=== PATIENT | male | born 1960 | race Caucasian/White ===

== ENCOUNTER 2019-07-27 11:53 | Outpatient (CLI) | payer OTHER, SELFPAY ==
--- NOTE | 2019-07-27 12:37 | ECG_ITS ---
Measurements Intervals [place] Rate: 67 P: 33 AL: 187 QRS: -12 QRSD: 97 T: 7 QT: 344 QTc: 364 Interpretive Statements SINUS RHYTHM BORDERLINE R WAVE PROGRESSION, ANTERIOR LEADS BORDERLINE T WAVE ABNORMALITY- INFERIOR LEADS BASELINE ARTIFACT- I, III, AVL BORDERLINE ECG Electronically Signed On 07-27-2019 16:22:08 ANIMAL STICKER by Matteo Palm D.O.
[2019-07-27 13:01] LABS: Basophils Absolute Auto 0.1 K/mm3 (0.0-0.1); Basophils Percent Auto 0.9 % (0.2-1.2); Eosinophils Absolute Auto 0.1 K/mm3 (0-0.3); Eosinophils Percent Auto 0.9 % (0-4.4); Hematocrit 41.4 % (42.0-52.0); Hemoglobin 14.1 g/dL (14.0-18.0); Immature Granulocyte Absolute 0.02 K/mm3 (0.00-0.031); Immature Granulocyte Percent A 0.3 % (0-0.5); Lymphocytes Absolute Auto 1.72 K/mm3 (0.9-3.2); Lymphocytes Percent Auto 26.2 % (18.3-44.2); Mean Corpuscular HGB Conc 34.1 g/dl (32-36); Mean Corpuscular Hemoglobin 32.1 pg (26-34); Mean Corpuscular Volume 94.3 fl (80-100); Mean Platelet Volume 10.1 fl (7.4-10.4); Monocytes Absolute Auto 0.5 K/mm3 (0.1-0.6); Monocytes Percent Auto 8.1 % (2.6-8.5); Neutrophils Absolute Auto 4.2 K/mm3 (1.3-6.7); Neutrophils Percent Auto 63.6 % (45.5-73.1); Platelet Count Result 329 k/mm3 (150-375); Red Blood Count 4.39 M/mm3 (4.6-6.20); Red Cell Distribution Width 11.8 % (11.5-14.5); White Blood Count 6.6 K/mm3 (4.5-10.0)
[2019-07-27 13:10] LABS: INR 0.9
[2019-07-27 13:11] LABS: Partial Thromboplastin Time 25.7 SECONDS (22.3-36.8)
[2019-07-27 13:13] LABS: Alanine Aminotransferase 18 U/L (4-50); Alkaline Phosphatase 43 U/L (38-126); Aspartate Amino Transferase 26 U/L (17-59); Bilirubin,Total 0.6 mg/dL (0.2-1.3); Blood Urea Nitrogen 32 mg/dL (9-20); Calcium 10.6 mg/dL (8.4-10.2); Carbon Dioxide 25 mmol/L (22-30); Chloride 100 mmol/L (98-107); Estimated Glomerular Filt Rate 36; Glucose 116 mg/dL (75-110); Potassium 4.5 mmol/L (3.4-5.0); Sodium 136 mmol/L (137-145)
== END 2019-07-27 11:54 | disposition home or self-care (01) ==
LOC: ANHSURGERY 11:56
PROVIDERS: PCP Family Medicine; Visit Provider Urology
DX: Z01.818 Encounter for other preprocedural examination (principal); I10 Essential (primary) hypertension; E11.9 Type 2 diabetes mellitus without complications
CPT/HCPCS: 36415; 80053; 85025; 85610; 85730; 86850; 86900; 86901; 87086; 87088; 93005

== ENCOUNTER → 2019-08-03 15:57 | Outpatient (CLI) | payer OTHER, SELFPAY ==
--- NOTE | ~2019-08-03 | US_ITS ---
EXAMINATION: US retroperitoneal comp EXAM DATE: 08/03/2019 16:19 INDICATION: Renal insufficiency, stage III kidney disease. Elevated creatinine. TECHNIQUE: Multiple grayscale and Doppler images of the kidneys were obtained (by a technologist who performed the scan) and subsequently reviewed. There is no prior study for comparison. FINDINGS: Right kidney: There is normal contour and echogenicity. It measures 10.8 x 5.1 x 5.7 centimeters. T here are no focal renal lesions identified. There is no hydronephrosis. Left kidney: There is normal contour and echogenicity. It measures 11.7 x 5.7 x 5.0 centimeters. Th ere are no focal renal lesions identified. There is no hydronephrosis. Bladder unremarkable. Prevoid bladder volume 143 mL, postvoid bladder volume 58 mL. Prostatomegaly n oted. IMPRESSION: 1. Prostatomegaly with some postvoid residual. Reviewed, dictated and finalized at location A. HNUT MAKER
== END ==
PROVIDERS: PCP Family Medicine; Visit Provider Urology
DX: N28.9 Disorder of kidney and ureter, unspecified (principal); N40.0 Benign prostatic hyperplasia without lower urinary tract symptoms
CPT/HCPCS: 76770

== ENCOUNTER 2019-08-07 00:44 | Day surgery (SDC) | payer OTHER, SELFPAY ==
[2019-07-27 12:38] VITALS: BP 127/69; PULSE 74; RESP 18; TEMP 36.7; O2SAT 98; BMI 26.7
--- NOTE | 2019-08-06 18:15 | WPDANESEPP ---
Anes - Eval Pre Procedure Procedure: Operation Date: 08/07/19 07:30 Proposed Procedures p Robotic Assisted Nerve Sparing Prostatectomy, Possible Pelvic Lymph Node Dissection - Vinicio Vizcaino MD Date/Time: 08/06/19 18:15 Pre Op Diagnosis: Prostate CA Patient Data Age: 59 Gender: M Height: 1.8 m Weight: 87 kg Last Vital Signs Temp 36.7 C 07/27/19 12:38 Pulse 74 07/27/19 12:38 Resp 18 07/27/19 12:38 BP 127/69 07/27/19 12:38 Pulse Ox 98 07/27/19 12:38 Allergies Allergy/AdvReac Type Severity Reaction Status Date / Time No Known Allergies Allergy Unknown Unverified 07/27/19 12:35 tadalafil AdvReac Mild Heartburn Verified 07/27/19 12:35 Home Medications Medication Instructions Recorded Confirmed Type atorvastatin 10 mg tablet 10 mg PO DAILY #90 tablet 05/09/19 07/27/19 Rx fenofibrate 160 mg tablet 160 mg PO DAILY #90 tablet 06/18/19 07/27/19 Rx cholecalciferol (vitamin D3) 2,000 unit PO DAILY 07/27/19 07/27/19 History [Vitamin D3] finasteride 5 mg PO DAILY 07/27/19 07/27/19 History lisinopril-hydrochlorothiazide 1 tablet PO DAILY 07/27/19 07/27/19 History metformin 500 mg PO DAILY 07/27/19 07/27/19 History ECG: Patient: Naren Box [facility]#: [id number] : 8Acct:[id number] Age/Sex: 59 / MADM Date: 07/27/19 Loc: ANHSURGERY Attending Dr: Vinicio Vizcaino MD Ordering Physician: Ruben Pabon DO Date of Service: 07/27/19 Procedure(s): CA 12 lead EKG Accession Number(s): [id number] cc: ~ Measurements Intervals [place] Rate: 67 P: 33 [place]: 187 QRS: -12 QRSD: 97 T: 7 QT: 344 QTc: 364 Interpretive Statements SINUS RHYTHM BORDERLINE R WAVE PROGRESSION, ANTERIOR LEADS BORDERLINE T WAVE ABNORMALITY- INFERIOR LEADS BASELINE ARTIFACT- I, III, AVL BORDERLINE ECG Electronically Signed On 07-27-2019 16:22:08 EDUCATION FACULTY MEMBER by Matteo Palm D.O. Patient hx anesthesia problems: none Family hx anesthesia problems: none PMFSH Past Medical History Medical History (Updated 08/06/19 @ 09:51 by Ruben Pabon DO) CKD (chronic kidney disease) stage III Diabetes type 2, controlled Hyperlipidemia Hypertension Osteoarthritis Prostate CA Family History Family History (Updated 01/20/17 @ 15:42 by DOCTOR UNKNOWN) Mother Family history of lung cancer Other Diabetes mellitus Hypertension Social History Social History Smoking status: Never smoker Second hand tobacco smoke exposure: No Alcohol intake: never Gender identity (if verbalized by the patient): Male Exam Day of Procedure 08/06/19 18:15
[2019-08-07] VITALS (11 sets, daily range): BP systolic 109–131; BP diastolic 55–84; PULSE 73–108; RESP 12–18; TEMP 36.4–37.7; O2SAT 91–100; BMI 23.6
--- NOTE | 2019-08-07 06:34 | WPDANESEFPP ---
Anes - Eval Final PreProcedure Day of Procedure 08/07/19 06:34 Patient weight: overweight Heart: regular rate and rhythm Lungs: clear to auscultation and normal air movement Airway: Mallampati scale class II Neurological: alert and oriented Last oral intake: >/= 8 hours ASA classification: III Emergent: no Anesthetic plan: proceed Anesthesia type and monitoring: general ETT and standard monitoring Informed Consent: The patient's anesthetic plan and its attendant risks and benefits were discussed with the patient/family/POA. Questions were solicited and answers provided to the satisfaction of the patient/family/POA.
[2019-08-07 06:37] LABS: Glucose Point of Care 105 (65-105)
--- NOTE | 2019-08-07 06:48 | WPDHPUPDATE1 ---
History and Physical Update Update Date/Time: 08/07/19 06:48 History and Physical has been reviewed, including an updated exam of the patient. There are NO changes in the patient's condition. Risks, benefits, and alternatives have been discussed and questions answered. Patient agrees to proceed with procedure.
--- NOTE | 2019-08-07 07:09 | WPDHPUPDATE1 ---
History and Physical Update Update Date/Time: 08/07/19 07:09 History and Physical has been reviewed, including an updated exam of the patient. There are NO changes in the patient's condition. Risks, benefits, and alternatives have been discussed and questions answered. Patient agrees to proceed with procedure. Possible PLND in addition.
[2019-08-07] MEDS: LACTATED RINGERS 1,000 ML 30 ML IV CONT ×2 (07:10→11:46)
[2019-08-07] MEDS: ceFAZolin 2 GM/D5W 50 ML 2 GM/50 ML BAG IVPB (07:28)
--- NOTE | 2019-08-07 11:33 | P.OP_ITS ---
Procedure Note - Detailed Date of procedure: 08/07/19 Pre-op diagnosis: Prostate CA Adenocarcinoma of the prostate Post-op diagnosis: same Procedure performed: Robotic assisted nerve-sparing prostatectomy with right pelvic lymph node dissection Description of procedure: Patient was taken the operative suite and correctly identified. Once general anesthesia was obtained he was placed in the low lying dorsal lithotomy position prepped and draped in usual sterile fashion. A supraumbilical midline incision was made and carried down to the rectus fascia. Veress needle was inserted in the abdomen was insufflated to 15 mm Hg pressure. Camera port was placed under direct vision. We then placed our working ports in the appropriate locations. Patient has significant amount of adhesions of the sigmoid colon which were taken down. Posterior approach was then performed. Seminal vesicles were dissected out entirety and the vas is were transected. Plane between the prostate and rectum was developed. Bladder was then taken down. The space of Retzius was developed. Dorsal venous complex was isolated and ligated with a 0 Vicryl in secured to the pubic bone. Puboprostatic had been taken down. Anterior bladder neck was then incised and opened. Patient is noted to have a median lobe which was protuberant. This was dissected out. The bladder neck was slightly enlarged from this and we reconstructed the right lateral aspect with interrupted 2 0 Vicryls. Posterior bladder neck was then taken down. Then on phase was incised. The previously dissected seminal vesicles and vas were visualized and brought in the operative field. Bilateral nerve-sparing was performed standard fashion. Pedicles had been clipped. Dorsal venous complex was then transected. The urethra was also transected. There was a nice urethral stump present. We then did a right pelvic lymph node dissection with the boundaries being the external iliac vein obturator nerve, obie's ligament and bifurcation proximally. The obturator nerve was visualized at all times. Prostate and lymph node packet were then placed in an Endo-Catch bag. We placed Surgicel in the right obturator fossa as well as over the nerves. We then approximated [place]. The bladder neck was then approximated to the urethral stump using V lock suture in a running fashion. There was good [id number] approximation. Eighteen Sammarinese Oneill was inserted inflated with 10 cc of sterile water. The bladder was then filled with 120 cc of sterile water. There was good approximation no evidence of extravasation at this time. All lap count needle count sponge counts were correct. The robot was undocked. The Endo-Catch bag was then brought out through the midline incision. Rectus fascia was closed using 0 Vicryl. We had placed a Morales drain through the 3rd port site. This was secured in place. Subcuticular stitches were then placed in skin. We anesthetized 1% lidocaine. Patient is taken recovery room stable condition. Anesthesia: GETA Surgeon: Vinicio Vizcaino MD Estimated blood loss (mL): 150 Drains: Yes Packing: No Pathology: yes Complications: No immediate complications Condition: stable Disposition: PACU
--- NOTE | 2019-08-07 11:51 | SUR.OPER ---
EBL 150ML, END U/A 150ML PINK TINGED/SECURE TO RIGHT LEG.
[2019-08-07 11:53] LABS: Glucose Point of Care 154 (65-105)
--- NOTE | 2019-08-07 12:50 | SUR.PHASEI ---
1230:ATTEMPTED TO UPDATE SISTER, VIDA IN WAITING ROOM; SHE IS NOT PRESENT IN WAITING RM.
[2019-08-07] MEDS: LACTATED RINGERS 1,000 ML 125 ML IV CONT (13:38)
--- NOTE | 2019-08-07 13:44 | ADMGEN ---
This patient, Naren Box, was admitted to [facility] Surg Room 310-01. Patient/family oriented to hospital policies and general routines including ID bracelet, bed and alarms, visiting hours, pain management, procedures, bathroom and other care routines, personal items, smoking policy, room service/diet, and visiting hours. Valuables list has been completed. Information on how to activate the Rapid Response Team has been discussed. Patient/Family are encouraged to report perceived risks to care and to ask questions if they do not understand what they are told or what they should do.
[2019-08-07] MEDS: FENOFIBRATE 160 MG TABLET PO (18:32)
[2019-08-07] MEDS: ATORVASTATIN 10 MG TABLET PO (21:05)
[2019-08-08] MEDS: LACTATED RINGERS 1,000 ML 125 ML IV CONT ×2 (00:54→08:51)
[2019-08-08 02:00] VITALS: BP 109/62; PULSE 71; RESP 18; TEMP 37; O2SAT 100
[2019-08-08 05:54] VITALS: BP 98/55; PULSE 64; RESP 18; TEMP 36.3; O2SAT 99
[2019-08-08 06:32] LABS: Hematocrit 31.2 % (42.0-52.0); Hemoglobin 10.6 g/dL (14.0-18.0)
[2019-08-08 06:40] LABS: Blood Urea Nitrogen 31 mg/dL (9-20); Calcium 8.7 mg/dL (8.4-10.2); Carbon Dioxide 29 mmol/L (22-30); Chloride 99 mmol/L (98-107); Estimated CRCL calculation 42 ml/min; Estimated Glomerular Filt Rate 39; Glucose 147 mg/dL (75-110); Potassium 3.8 mmol/L (3.4-5.0); Sodium 135 mmol/L (137-145)
--- NOTE | 2019-08-08 07:16 | WPDUROPN2 ---
Progress Note: A&P Assessment and Plan (1) Adenocarcinoma of prostate: Code(s): C61 - Malignant neoplasm of prostate Status: Acute Assessment and Plan: Postop day 1. Robotic assisted nerve-sparing prostatectomy with right pelvic lymph node dissection. Patient doing well. Increase activity. Will monitor BLAINE output this morning. If remains minimal will remove BLAINE prior to discharge. Possible discharge later today with Oneill catheter and plan for catheter cystogram as outpatient next week Subjective Subjective Date/Time Seen: 08/08/19 07:16 Post Op day: 1 (Robotic assisted nerve-sparing radical prostatectomy with right pelvic lymph node dissection) Interval history: Naren is doing well today. No significant pain. His urine remains clear. Blood pressure slightly decreased will monitor at this point in time. Otherwise hemodynamically stable Review of Systems Review of Systems: All systems reviewed & are unremarkable except as noted in HPI and below Exam Const: General: comfortable HENMT: General nose exam: Normal nares present Eyes: General: appearance normal, both eyes and all related structures Resp: Effort & Inspection: normal respiratory effort Cardio: Rate: regular rate Rhythm: regular rhythm GI: Inspection: non-distended : Male General Exam: Yes normal external exam Urinary Catheter: Urinary Catheter: patent and draining and urine clear Skin: General skin exam: normal color Objective Data Vital Signs Vital Signs: Vital Signs - 24 hr 08/07/19 11:46 08/07/19 12:00 08/07/19 12:14 Temperature 36.4 C L Pulse Rate 82 93 96 Respiratory Rate 14 16 15 Blood Pressure 115/55 L 109/71 113/75 Pulse Oximetry 97 98 98 08/07/19 12:30 08/07/19 12:45 08/07/19 13:00 Temperature 36.4 C L Pulse Rate 88 90 89 Respiratory Rate 15 12 13 Blood Pressure 112/72 117/77 111/74 Pulse Oximetry 92 91 93 08/07/19 13:15 08/07/19 13:30 08/07/19 14:00 Temperature 36.8 C Pulse Rate 91 90 76 Respiratory Rate 16 16 16 Blood Pressure 129/68 126/71 128/75 Pulse Oximetry 91 94 98 08/07/19 22:00 08/08/19 02:00 08/08/19 05:54 Temperature 37.7 C H 37.0 C 36.3 C L Pulse Rate 108 H 71 64 Respiratory Rate 18 18 18 Blood Pressure 118/70 109/62 98/55 L Pulse Oximetry 93 100 99 Intake/Output Intake/Output: Intake & Output 08/05/19 08/06/19 08/07/19 08/08/19 23:59 23:59 23:59 23:59 Intake Total 1330 1250 Output Total 530 2220 Balance 800 -970 Meds/Results Medications: Active Medications Generic Name Dose Route Start Last Admin Trade Name Freq PRN Reason Stop Dose Admin Hydrocodone Bitart/Acetaminophen 1 tab 08/07/19 13:08 08/07/19 18:32 [place] 5-325 Mg PO 1 tab Q6H PRN Administration Pain Rated 4-6 Hydrocodone Bitart/Acetaminophen 2 tab 08/07/19 13:08 08/08/19 00:54 [place] 5-325 Mg PO 2 tab Q6H PRN Administration Pain Rated 7-10 Atorvastatin Calcium 10 mg 08/07/19 21:00 08/07/19 21:05 Lipitor PO 10 mg HS PATRICIA Administration Fenofibrate 160 mg 08/07/19 09:00 08/07/19 18:32 Fenofibrate PO 160 mg DAILY PATRICIA Administration Hydrochlorothiazide 12.5 mg 08/08/19 09:00 Hydrochlorothiazide PO QAM [facility] Hyoscyamine 0.125 mg 08/07/19 13:08 Levsin Tablet SUBLINGUAL Q4H PRN Bladder Spasm Lactated Ringer's 1,000 mls @ 125 mls/hr 08/07/19 13:08 08/08/19 00:54 Lr - Lactated Ringers Iv IV CONT 125 mls/hr .Q8H PATRICIA Administration Ketorolac Tromethamine 30 mg 08/07/19 13:08 Toradol Inj IV PUSH 08/08/19 13:09 Q6H PRN Pain Rated 4-6 Levofloxacin 500 mg 08/08/19 09:00 Levaquin Tab PO DAILY [facility] Lisinopril 10 mg 08/08/19 09:00 Prinivil PO QAM [facility] Metformin HCl 500 mg 08/08/19 08:00 Glucophage PO DAILY@0800 [facility] Morphine Sulfate 1 mg 08/07/19 13:08 Morphine Sulfate Inj IV PUSH Q2H PRN Pain Rated 7-10 Naloxone HCl 0.1 mg
[2019-08-08 08:51] VITALS: BP 106/65
[2019-08-08] MEDS: hydroCHLOROthiazide 12.5 MG CAPSULE PO (08:52)
[2019-08-08] MEDS: FENOFIBRATE 160 MG TABLET PO (08:52)
[2019-08-08] MEDS: metFORMIN HCL 500 MG TABLET PO (08:52)
[2019-08-08] MEDS: lisinopriL 10 MG TABLET PO (08:52)
[2019-08-08 10:00] VITALS: BP 122/63; PULSE 80; RESP 16; O2SAT 100
== END 2019-08-08 17:15 | disposition home or self-care (01) ==
LOC: ANHSURGERY 05:50 → ANH3MEDSUR 15:29
PROVIDERS: PCP Family Medicine; Visit Provider Urology
PROC: 0VT04ZZ Resection of Prostate, Percutaneous Endoscopic Approach (ICD-10-PCS; CPT 55867; principal; 2019-08-07 07:30)
DX: C61 Malignant neoplasm of prostate (principal); I12.9 Hypertensive chronic kidney disease with stage 1 through stage 4 chronic kidney disease, or unspecified chronic kidney disease; E11.22 Type 2 diabetes mellitus with diabetic chronic kidney disease; N18.3 Chronic kidney disease, stage 3 (moderate); E78.5 Hyperlipidemia, unspecified; M19.90 Unspecified osteoarthritis, unspecified site; Z79.84 Long term (current) use of oral hypoglycemic drugs
CPT/HCPCS: 55866; 38571; S2900; 36415; 80048; 85014; 85018; 88305; 88307; 88309; A9270; J0131; J0690; J1100; J2250; J2370; J2405; J2704; J3010; J7030; J7120; Q9968

== ENCOUNTER 2019-08-16 09:51 | Outpatient (CLI) | payer OTHER, SELFPAY ==
--- NOTE | ~2019-08-16 | XR_ITS ---
EXAMINATION: XR cystogram EXAM DATE: 08/16/2019 10:46 INDICATION: Prostate cancer. TECHNIQUE: Fluoroscopic guidance during cystogram through Oneill catheter in place on patient arrival . Patient tolerated approximately 200 mL of contrast. Dose reduction digital pulsed fluoroscopy was u sed at 4 frames per second with DAP 11 Gycm2. No prior study. FINDINGS: Oneill catheter in position. Mild bladder wall trabeculation. No focal masses, diverticula, extravasation or ureteral reflux demonstrated. IMPRESSION: Unremarkable postoperative cystogram. Reviewed, dictated and finalized at location A. OCHEMICAL TECHNICIAN
== END 2019-08-16 09:52 | disposition home or self-care (01) ==
PROVIDERS: PCP Family Medicine; Visit Provider Urology
DX: C61 Malignant neoplasm of prostate (principal)
CPT/HCPCS: 51600; 74430; Q9967

== ENCOUNTER 2021-02-11 00:14 | Day surgery (SDC) | payer OTHER, SELFPAY ==
[2021-02-03 13:40] VITALS: BMI 25.1
--- NOTE | 2021-02-11 08:23 | PM.HPGS ---
History of Present Illness History of Present Illness Consent: Risks, benefits, and alternatives have been discussed and questions answered. Patient agrees to proceed with procedure. Chief complaint: hx of colon polyps Narrative: Naren Box is a 61 year old male here for colon cancer screening. He has a history of polyps Review of Systems Review of Systems: All systems reviewed & are unremarkable except as noted in HPI and below PMFSH Past Medical History Medical History Adenocarcinoma of prostate CKD (chronic kidney disease) stage 3, GFR 30-59 ml/min Dyslipidemia Essential (primary) hypertension GERD without esophagitis Idiopathic chronic gout, unspecified site, without tophus (tophi) Osteoarthritis Prostate CA Subclinical hypothyroidism Type 2 diabetes mellitus without complication, without long-term current use of insulin Surgical History Surgical History History of prostatectomy (~07/2019) 08/16 Family History Family History Mother Family history of lung cancer Other Diabetes mellitus Hypertension Social History Social History Smoking status: Never smoker Second hand tobacco smoke exposure: No Alcohol intake: former Substance use: never Substance use type: does not use Living arrangements: alone Gender identity (if verbalized by the patient): Male Sexual Orientation (if Verbalized by the Patient): Straight or Heterosexual Spiritual care concerns: No Meds Home Medications and Allergies Home Medications Medication Instructions Recorded Confirmed Type cholecalciferol (vitamin D3) 2,000 unit PO DAILY 07/27/19 02/03/21 History [Vitamin D3] blood sugar diagnostic See Rx Instructions .ROUTE 01/02/20 02/03/21 Rx .COMPLEX #100 each lancets 33 gauge See Rx Instructions .ROUTE 01/02/20 02/03/21 Rx .COMPLEX #100 each atorvastatin 10 mg tablet 10 mg PO QHS tablet 01/08/21 02/03/21 History fenofibrate 160 mg tablet 160 mg PO DAILY tablet 01/08/21 02/03/21 History lisinopril 10 1 tablet PO DAILY tablet 01/08/21 02/03/21 History mg-hydrochlorothiazide 12.5 mg tablet metformin 1,000 mg tablet 1,000 mg PO BID #180 tablet 01/13/21 02/03/21 Rx Allergies Allergy/AdvReac Type Severity Reaction Status Date / Time No Known Allergies Allergy Unknown Verified 02/11/21 08:40 Exam Resp: Auscultation: clear to auscultation bilaterally Cardio: Rate: regular rate Rhythm: regular rhythm GI: GI Palp: Yes Soft to palpation and No Tenderness to palpation present (GI) Assessment and Plan Assessment and plan (1) Colon cancer screening: Code(s): Z12.11 - Encounter for screening for malignant neoplasm of colon Status: Acute Assessment and Plan: Colonoscopy with possible biopsy or polypectomy or cautery or injection of substances.
[2021-02-11 08:42] VITALS: BP 119/75; PULSE 69; RESP 14; TEMP 36.2; O2SAT 100; BMI 24.7
[2021-02-11] MEDS: LACTATED RINGERS 1,000 ML 150 ML IV CONT (08:45)
--- NOTE | 2021-02-11 08:47 | WPDANESEPPF ---
Anes - Initial Pre Proc Eval Procedure: Operation Date: 02/11/21 09:30 Proposed Procedures p Screening Colonoscopy - Sander Mayes MD Date/Time: 02/11/21 08:47 Surgeon: Sander Mayes MD Pre Op Diagnosis: hx of colon polyps Patient Data Age: 61 Gender: M Height: 1.83 m Weight: 83 kg Last Vital Signs Temp 36.2 C L 02/11/21 08:42 Pulse 69 02/11/21 08:42 Resp 14 02/11/21 08:42 BP 119/75 02/11/21 08:42 Pulse Ox 100 02/11/21 08:42 Allergies Allergy/AdvReac Type Severity Reaction Status Date / Time No Known Allergies Allergy Unknown Verified 02/11/21 08:40 Home Medications Medication Instructions Recorded Confirmed Type cholecalciferol (vitamin D3) 2,000 unit PO DAILY 07/27/19 02/03/21 History [Vitamin D3] blood sugar diagnostic See Rx Instructions .ROUTE 01/02/20 02/03/21 Rx .COMPLEX #100 each lancets 33 gauge See Rx Instructions .ROUTE 01/02/20 02/03/21 Rx .COMPLEX #100 each atorvastatin 10 mg tablet 10 mg PO QHS tablet 01/08/21 02/03/21 History fenofibrate 160 mg tablet 160 mg PO DAILY tablet 01/08/21 02/03/21 History lisinopril 10 1 tablet PO DAILY tablet 01/08/21 02/03/21 History mg-hydrochlorothiazide 12.5 mg tablet metformin 1,000 mg tablet 1,000 mg PO BID #180 tablet 01/13/21 02/03/21 Rx Patient hx anesthesia problems: none Family hx anesthesia problems: none PMFSH Past Medical History Medical History Adenocarcinoma of prostate CKD (chronic kidney disease) stage 3, GFR 30-59 ml/min Dyslipidemia Essential (primary) hypertension GERD without esophagitis Idiopathic chronic gout, unspecified site, without tophus (tophi) Osteoarthritis Prostate CA Subclinical hypothyroidism Type 2 diabetes mellitus without complication, without long-term current use of insulin Surgical History Surgical History History of prostatectomy (~07/2019) 08/16 Family History Family History Mother Family history of lung cancer Other Diabetes mellitus Hypertension Social History Social History Smoking status: Never smoker Second hand tobacco smoke exposure: No Alcohol intake: former Substance use: never Substance use type: does not use Living arrangements: alone Gender identity (if verbalized by the patient): Male Sexual Orientation (if Verbalized by the Patient): Straight or Heterosexual Spiritual care concerns: No Anes - Eval Final PreProcedure Day of Procedure 02/11/21 08:47 Patient weight: normal Heart: regular rate and rhythm Lungs: clear to auscultation Airway: Mallampati scale class II Neurological: alert and oriented Last oral intake: >/= 8 hours ASA classification: III Emergent: no Anesthetic plan: proceed Anesthesia type and monitoring: general GIVS and standard monitoring Informed Consent: The patient's anesthetic plan and its attendant risks and benefits were discussed with the patient/family/POA. Questions were solicited and answers provided to the satisfaction of the patient/family/POA.
[2021-02-11 09:00] LABS: Glucose Point of Care 76 mg/dl (65-105)
[2021-02-11 09:55] VITALS: BP 98/66; PULSE 74; RESP 18; O2SAT 96
[2021-02-11 10:05] VITALS: BP 106/68; PULSE 64; RESP 18; O2SAT 100
[2021-02-11 10:15] VITALS: BP 106/68; PULSE 66; RESP 14; O2SAT 100
== END 2021-02-11 10:23 | disposition home or self-care (01) ==
PROVIDERS: PCP Family Medicine; Visit Provider Internal Medicine Gastroenterology
PROC: 0DJD8ZZ Inspection of Lower Intestinal Tract, Via Natural or Artificial Opening Endoscopic (ICD-10-PCS; CPT 45378; principal; 2021-02-11 09:30)
DX: Z12.11 Encounter for screening for malignant neoplasm of colon (principal); K57.30 Diverticulosis of large intestine without perforation or abscess without bleeding; K64.8 Other hemorrhoids; Z86.010 Personal history of colon polyps; I12.9 Hypertensive chronic kidney disease with stage 1 through stage 4 chronic kidney disease, or unspecified chronic kidney disease; N18.30 Chronic kidney disease, stage 3 unspecified; E11.22 Type 2 diabetes mellitus with diabetic chronic kidney disease; K21.9 Gastro-esophageal reflux disease without esophagitis; M10.00 Idiopathic gout, unspecified site; E03.9 Hypothyroidism, unspecified; Z85.46 Personal history of malignant neoplasm of prostate; Z79.84 Long term (current) use of oral hypoglycemic drugs
CPT/HCPCS: 45378; 82948; J2704; J7120

== ENCOUNTER 2021-06-28 07:58 | Inpatient (IN) | payer OTHER, SELFPAY ==
[2021-06-28] VITALS (25 sets, daily range): BP systolic 101–146; BP diastolic 74–99; PULSE 90–112; RESP 14–20; TEMP 36.9; O2SAT 94–100; BMI 25.0; BMI 25.6
--- NOTE | ~2021-06-28 | CT_ITS ---
EXAMINATION: CTA chest PE protocol EXAM DATE: 06/28/2021 12:06 INDICATION: Dyspnea. TECHNIQUE: Spiral CTA of the chest (pulmonary arteries) was performed with 100 cc Omnipaque 350 intr avenous contrast injection. Images were acquired during the pulmonary arterial phase. Coronal maxi mum intensity projection 3D-reconstructions were created by the technologist on dedicated workstation . Axial, coronal and sagittal reformatted images were reviewed. The dose-length product (DLP) for t his examination was 717.25 mGy-cm. The exposure was tailored according to patient size (auto mA exp osure control), and iterative reconstruction (ASIR) was used as additional dose reduction technique. There is no prior study for comparison. FINDINGS: There is saddle pulmonary embolism, multiple right-sided, several left-sided emboli. There is evidence of right heart strain. Large clot burden. No pulmonary infarction or other airspace dise ase. No thoracic aortic dissection. There are no pleural or pericardial effusions. Tracheobronchia l tree is patent. There is no mediastinal, hilar or axillary lymphadenopathy. There is no pneumot horax. Heart normal in size. No evidence of coronary arterial calcification. There is small slidi ng gastroesophageal hiatal hernia. There is thoracic spondylosis without osteoblastic or osteolytic lesions identified. IMPRESSION: Multiple pulmonary emboli including saddle embolism. Large clot burden, right heart strai n. I discussed this with Satnam Wong DO at 06/28/2021 12:13 DATASTAGE ARCHITECT. Reviewed, dictated and finalized at location A. STAGE ARCHITECT IMPRESSION: Multiple pulmonary emboli including saddle embolism. Large clot bur den, right heart strain. I discussed this with Satnam Wong DO at 06/28/2021 12:13 DATASTAGE ARCHITECT.
--- NOTE | ~2021-06-28 | XR_ITS ---
EXAMINATION: XR chest 1V portable EXAM DATE: 06/28/2021 10:59 INDICATION: Shortness of breath. TECHNIQUE: Portable AP frontal chest x-ray was obtained. There is no prior study for comparison. FINDINGS: The lungs are clear. There are no pleural effusions. The cardiomediastinal silhouette is within normal limits. There is no pneumothorax suspected. The bones and soft tissues are unremarkab le. IMPRESSION: No acute cardiopulmonary findings. Reviewed, dictated and finalized at location A. HEALTH LPN
--- NOTE | ~2021-06-28 | US_ITS ---
EXAMINATION: US venous doppler [facility] DATE: 06/28/2021 15:06 INDICATION: Acute pulmonary emboli. TECHNIQUE: Grayscale ultrasound images without and with compression and Doppler ultrasound images of the bilateral lower extremity veins were obtained. COMPARISON: None. FINDINGS: The visualized portions of right common femoral vein, profunda (deep) femoral vein, femoral vein, pop liteal vein, peroneal veins, posterior tibial veins, and greater saphenous vein outflow are patent. The visualized portions of left common femoral vein, profunda femoral vein, femoral vein, popliteal v ein, peroneal veins, posterior tibial veins, and greater saphenous vein outflow are patent. IMPRESSION: 1. No deep venous thrombosis. Reviewed, dictated and finalized at location A. IGERATING OILER
--- NOTE | 2021-06-28 10:34 | ECG_ITS ---
Measurements Intervals [place] Rate: 95 P: 68 [place]: 183 QRS: -8 QRSD: 101 T: 26 QT: 341 QTc: 429 Interpretive Statements SINUS RHYTHM NONSPECIFIC T-WAVE ABNORMALITY- INFERIOR LEADS BORDERLINE ECG Electronically Signed On 06-28-2021 10:47:22 BOW MAKER by Matteo aPlm D.O.
--- NOTE | 2021-06-28 10:35 | ED.GENADULT ---
HPI - General Adult General Chief complaint: Weakness Stated complaint: BBlood Sugar Elevated Time Seen by Provider: 06/28/21 10:32 Source: RN notes reviewed History of Present Illness HPI narrative: Patient presents emergency department from home via EMS for weakness. Patient states that he has felt weak since yesterday he states that his blood sugars normally run 100-1 15 but over the past 2 days have been up around 2 50-300. States he is on Metformin for his blood sugar she states is also felt short of breath since yesterday he denies any fevers or chills rhinorrhea chest pain, cough abdominal pain nausea vomiting diarrhea or any other symptoms. States he has been taking his medications as prescribed. Related Data Home Medications Medication Instructions Recorded Confirmed cholecalciferol (vitamin D3) 2,000 unit PO DAILY 07/27/19 02/03/21 [Vitamin D3] fenofibrate 160 mg tablet 160 mg PO DAILY tablet 01/08/21 02/03/21 Allergies Allergy/AdvReac Type Severity Reaction Status Date / Time No Known Allergies Allergy Unknown Verified 06/28/21 10:36 Review of Systems Review of Systems: Gen.: Denies fevers or chills Eyes: Denies eye pain or visual change ENT: Denies congestion Respiratory: Shortness of breath denies cough CV: Denies chest pain or palpitations GI: Denies abdominal pain nausea, emesis or diarrhea Musculoskeletal: Denies back pain or muscle pain Neuro: Reports weakness Skin: Denies rash Except as documented, all other systems reviewed and negative PMFSH Past Medical History Medical History Adenocarcinoma of prostate CKD (chronic kidney disease) stage 3, GFR 30-59 ml/min Dyslipidemia Essential (primary) hypertension GERD without esophagitis Idiopathic chronic gout, unspecified site, without tophus (tophi) Osteoarthritis Prostate CA Subclinical hypothyroidism Type 2 diabetes mellitus without complication, without long-term current use of insulin Surgical History Surgical History History of prostatectomy (~07/2019) 08/16 Family History Family History Mother Family history of lung cancer Other Diabetes mellitus Hypertension Social History Social History (Reviewed 06/28/21 @ 10:36 by HERMAN Hargrove Smoking status: Never smoker Second hand tobacco smoke exposure: No Alcohol intake: former Substance use: never Substance use type: does not use Gender identity (if verbalized by the patient): Male Sexual Orientation (if Verbalized by the Patient): Straight or Heterosexual Spiritual care concerns: No Exam Narrative: APPEARANCE: No acute distress, nontoxic, resting in bed EYES: EOMI HEENT: Normocephalic, atraumatic, OMM RESPIRATORY: No respiratory distress Clear to auscultation bilaterally with no rhonchi wheezing or rales. CARDIOVASCULAR: Regular rate and rhythm without murmurs rubs or gallops. ABDOMINAL: Soft, nontender, nondistended, no rebound or guarding MUSCULOSKELETAl: Moves all extremities. No clubbing, cyanosis or edema. NEURO: Awake and aler x 3. Following commands, speech normal, no focal deficits SKIN:: Warm, dry. No rashes lesions or abrasions PSYCHIATRIC: Normal affect/mood, Course Course Emergency Course: Patient cellulitis but was not seen on CTA chest hemodynamically stable on room air. I did contact [facility], [facility], [facility] in [facility] and none of them have availability of beds. I also contacted [facility] who does not have interventional radiology will admit our facility at this time Discussed Dr. Ibrahim presentation work-up agrees with admission at this time Discussed Dr. Galaviz presentation work-up agrees with consult Discussed with patient and family results of workup and diagnosis. Discussed need for admission.
[2021-06-28] MEDS: SODIUM CHLORIDE 0.9% IV 1,000 ML 999 ML IV CONT (10:45)
[2021-06-28 10:54] LABS: Basophils Absolute Auto 0.1 K/mm3 (0.0-0.1); Basophils Percent Auto 0.5 % (0.2-1.2); Eosinophils Percent Auto 0.1 % (0-4.4); Hematocrit 39.4 % (42.0-52.0); Hemoglobin 13.4 g/dL (14.0-18.0); Immature Granulocyte Absolute 0.03 K/mm3 (0.00-0.031); Immature Granulocyte Percent A 0.3 % (0-0.5); Lymphocytes Absolute Auto 1.18 K/mm3 (0.9-3.2); Lymphocytes Percent Auto 12.3 % (18.3-44.2); Mean Corpuscular Hemoglobin 32.1 pg (26-34); Mean Corpuscular Volume 94.3 fl (80-100); Mean Platelet Volume 10.4 fl (7.4-10.4); Monocytes Absolute Auto 0.9 K/mm3 (0.1-0.6); Monocytes Percent Auto 9.8 % (2.6-8.5); Neutrophils Absolute Auto 7.4 K/mm3 (1.3-6.7); Platelet Count Result 246 k/mm3 (150-375); Red Blood Count 4.18 M/mm3 (4.6-6.20); Red Cell Distribution Width 12.1 % (11.5-14.5); White Blood Count 9.6 K/mm3 (4.5-10.0)
[2021-06-28 11:02] LABS: Add Urine Microscopic? YES; Appearance Urine Clear (Clear); Bilirubin Urine Negative (Negative); Blood Urine Negative (Negative); Color Urine Yellow (Yellow); Glucose Urine UA 3+ mg/dL (Negative); Ketones Urine Negative (Negative); Leukocyte Esterase Ur Negative LEU/UL (Negative); Nitrate Urine Negative (Negative); Protein Urine Negative (Negative); RBC Urine 0-2 /hpf (0-2); Urobilinogen Urine Negative mg/dL (<2.0); WBC Urine 0-3 /hpf
[2021-06-28 11:06] LABS: Alanine Aminotransferase 19 U/L (4-50); Albumin Level 4.9 g/dL (3.5-5.1); Alkaline Phosphatase 49 U/L (38-126); Anion Gap 14 mmol/L (8-16); Aspartate Amino Transferase 31 U/L (17-59); Bilirubin,Total 0.8 mg/dL (0.2-1.3); Blood Urea Nitrogen 30 mg/dL (9-20); Calcium 9.7 mg/dL (8.4-10.2); Carbon Dioxide 19 mmol/L (22-30); Chloride 103 mmol/L (98-107); Estimated Glomerular Filt Rate 34; Glucose 194 mg/dL (65-110); Potassium 4.4 mmol/L (3.4-5.0); Sodium 136 mmol/L (137-145)
[2021-06-28 11:07] LABS: Prothrombin Time 13.1 Seconds (11.1-14.7)
[2021-06-28 11:08] LABS: Partial Thromboplastin Time 28.4 SECONDS (22.3-36.8)
[2021-06-28 11:21] LABS: NT Pro B Type Natriuretic Pept 4650 pg/mL (5-100); Troponin I 0.708 ng/mL (0.000-0.034)
[2021-06-28] MEDS: ASPIRIN 81 MG CHEWABLE TABLET 324 MG PO (12:18)
[2021-06-28] MEDS: HEPARIN SODIUM 5,000 UNITS/ML VIAL 6500 UNITS IV PUSH (12:19)
[2021-06-28] MEDS: HEPARIN SOD/D5W 100 UNITS/ML 25,000 UNITS/250 ML BAG 15 UNITS IV CONT ×2 (13:49→20:52)
[2021-06-28 15:39] LABS: Troponin I 0.583 ng/mL (0.000-0.034)
--- NOTE | 2021-06-28 15:45 | PC.NURSE ---
ordered lunch and dinner tray @[id number], they were out of the lunch special that patient wanted so chicken sandwich was ordered in place of.
[2021-06-28 18:14] LABS: INR 1.1; Prothrombin Time 14.1 Seconds (11.1-14.7)
[2021-06-28 18:16] LABS: Partial Thromboplastin Time 87.7 SECONDS (22.3-36.8)
[2021-06-28 18:54] LABS: Troponin I 0.468 ng/mL (0.000-0.034)
--- NOTE | 2021-06-28 19:00 | PC.NURSE ---
Assuming care of pt.
[2021-06-29] VITALS (16 sets, daily range): BP systolic 115–139; BP diastolic 74–97; PULSE 70–110; RESP 16–20; TEMP 36.1–36.9; O2SAT 97–100
--- NOTE | 2021-06-29 | ECHO_ITS ---
Patient Info Name: Naren Box Age: 61 years : 1960 Gender: Male Ht: 72 in Wt: 188 lbs BSA: 2.09 m2 HR: 70 bpm BP: 132 / 86 mmHg Heart Rhythm: Sinus Rhythm Technical Quality: Good Exam Date: 06/29/2021 10:34 AM Exam Location: [facility] Pulmonary Exam Room: [facility] Patient Status: Inpatient Admit Date: 06/28/2021 Staff Ordering Physician: Shahana Martell DO Recruitment Director: Kathi Fraser RDCS Attending Provider: Christos Ibrahim DO Referring Physician: Jasbir HARPER; Exam Type: CA echo doppler color flow Study Info Indications - SADDLE PULMONARY EMBOLISM Complete two-dimensional, color flow and Doppler transthoracic echocardiogram is performed. Summary 1. Complete two-dimensional, color flow and Doppler transthoracic echocardiogram is performed. 2. Concentric left ventricular hypertrophy with vigorous systolic contractility. 3. Dilated right ventricle with significant hypokinesia. 4. Modestly enlarged right atrium. 5. Tricuspid insufficiency with estimated RV systolic pressure of 45 mmHg. Left Ventricle Left ventricular chamber dimension is normal. Left ventricular systolic function is normal, estimated at 60-65%. The left ventricular diastolic function is normal. Right Ventricle Right ventricular chamber dimension is severely enlarged. Right ventricular systolic function is reduced. Left Atria Left atrial chamber dimension is normal. Right Atria Right atrial chamber dimension is mildly enlarged. Aortic Valve The aortic valve is normal. Pulmonic Valve The pulmonic valve is normal. Mitral Valve The mitral valve has normal leaflets. Tricuspid Valve The tricuspid valve leaflets are normal. There is mild tricuspid valve regurgitation. Moderate pulmonary hypertension, estimated pulmonary arterial systolic pressure is 45 mmHg. Pericardium/Pleural The pericardium appears normal. Aorta The aortic root size at the sinus of Valsalva is normal. Left Ventricular Outflow Tract Name Value Normal LVOT 2D LVOT Diameter 2.1 cm LVOT Doppler LVOT Peak Gradient 5 mmHg LVOT Mean Gradient 3 mmHg LVOT VTI 19 cm LVOT VTI/AV VTI Ratio 1.1 LVOT Stroke Volume 67 ml LVOT CO 16.6 l/min LVOT CI 8.0 l/min/m2 Pulmonic Valve Name Value Normal PV Doppler PV Peak Gradient 2 mmHg PV Regurgitation Doppler DC Peak End Diastolic Velocity 140 cm/s Mitral Valve Name Value Normal -------
[2021-06-29 00:53] LABS: INR 1.1; Prothrombin Time 14.3 Seconds (11.1-14.7)
[2021-06-29 00:55] LABS: Partial Thromboplastin Time 104.9 SECONDS (22.3-36.8)
--- NOTE | 2021-06-29 04:53 | PM.IMHP ---
H&P: HPI History of Present Illness Date/Time: 06/29/21 04:53 Chief Complaint: weakness Narrative: 61-year-old male with past medical history of chronic kidney disease, diabetes, hypertension and prostate cancer status post resection who presented to the ER for weakness. The patient reports that for the last couple of days he has felt short of breath. He was so short of breath that he did not feel like he exerting himself to climb the stairs to go to bed. He subsequently tried to sleep on the couch and could not get any rest. He thought that his symptoms were due to hyperglycemia. His glucoses have been between 250 and 300. He reports that his glucoses are not usually over 150. He denies any recent changes in his diet. He has not had any fevers or chills. He has not had any cough or congestion. He had his [employer] COVSouktel booster before . He has not had any recent changes in medications. He does not have a personal history of blood clots. His sister did have a history of blood clots but he does not know if she had any associated conditions that may have led to her blood clots. His sister was over 20 years his senior. He has not had any recent weight changes or suggestion of recent illness. He has been taking his medications as directed. He recently had a normal colonoscopy. He denies any hematochezia, melena or hematuria. He reports that he walks his dogs several times a day. He also has 2 horses and he goes in clean their Stalls every day. He never gets winded when he is doing these activities. Review of Systems Review of Systems: 12 systems were reviewed with pertinent positives and negatives per HPI. Except as documented in the HPI, all other systems were reviewed and are negative. [facility] Past Medical History Medical History (Updated 06/29/21 @ 08:28 by Shahana Martell DO) Adenocarcinoma of prostate CKD (chronic kidney disease) stage 3, GFR 30-59 ml/min Managed by Dr. Eastman Dyslipidemia Essential (primary) hypertension GERD without esophagitis Idiopathic chronic gout, unspecified site, without tophus (tophi) Osteoarthritis Prostate CA Subclinical hypothyroidism Type 2 diabetes mellitus without complication, without long-term current use of insulin Surgical History Surgical History (Updated 06/29/21 @ 08:22 by Shahana Martell DO) History of prostatectomy (~07/2019) Dr. Vizcaino History of surgery on left wrist To repair a scaphoid fracture Family History Family History (Updated 06/29/21 @ 08:23 by Shahana Martell DO) Mother Family history of lung cancer Sibling DVT of leg (deep venous thrombosis) Other Diabetes mellitus Hypertension Social History Social History Smoking status: Never smoker Second hand tobacco smoke exposure: No Alcohol intake: never Substance use: never Substance use type: does not use Gender identity (if verbalized by the patient): Male Sexual Orientation (if Verbalized by the Patient): Straight or Heterosexual Spiritual care concerns: No Meds Home Medications and Allergies Home Medications Medication Instructions Recorded Confirmed Type cholecalciferol (vitamin D3) 2,000 unit PO DAILY 07/27/19 06/29/21 History [Vitamin D3] fenofibrate 160 mg tablet 160 mg PO DAILY tablet 01/08/21 06/29/21 History metformin 1,000 mg tablet 1,000 mg PO BID #180 tablet 01/13/21 06/29/21 Rx lisinopril 10 1 tablet PO DAILY #90 tablet 02/24/21 06/29/21 Rx mg-hydrochlorothiazide 12.5 mg tablet atorvastatin 10 mg tablet 10 mg PO QHS #90 tablet 03/12/21 06/29/21 Rx Allergies Allergy/AdvReac Type Severity Reaction Status Date / Time No Known Allergies Allergy Unknown Verified 06/28/21 10:36 Vital Signs Vital Signs - 24 hr 06/28/21 08:13 06/28/21 10:34 06/28/21 10:53 Temperature 98.5 F 98.4 F Pulse Rate 105 H 90 93 Respiratory Rate 15 14 17 Blood Pressure 111/75 130/86 Puls
[2021-06-29 05:12] LABS: Basophils Absolute Auto 0.1 K/mm3 (0.0-0.1); Eosinophils Percent Auto 0.7 % (0-4.4); Hematocrit 35.7 % (42.0-52.0); Hemoglobin 12.1 g/dL (14.0-18.0); Immature Granulocyte Absolute 0.01 K/mm3 (0.00-0.031); Immature Granulocyte Percent A 0.2 % (0-0.5); Lymphocytes Absolute Auto 1.37 K/mm3 (0.9-3.2); Lymphocytes Percent Auto 23.2 % (18.3-44.2); Mean Corpuscular HGB Conc 33.9 g/dl (32-36); Mean Corpuscular Hemoglobin 31.8 pg (26-34); Mean Corpuscular Volume 93.7 fl (80-100); Mean Platelet Volume 10.2 fl (7.4-10.4); Monocytes Absolute Auto 0.7 K/mm3 (0.1-0.6); Monocytes Percent Auto 11.5 % (2.6-8.5); Neutrophils Absolute Auto 3.7 K/mm3 (1.3-6.7); Neutrophils Percent Auto 63.4 % (45.5-73.1); Platelet Count Result 209 k/mm3 (150-375); Red Blood Count 3.81 M/mm3 (4.6-6.20); White Blood Count 5.9 K/mm3 (4.5-10.0)
[2021-06-29 05:23] LABS: Alanine Aminotransferase 18 U/L (4-50); Albumin Level 4.3 g/dL (3.5-5.1); Alkaline Phosphatase 48 U/L (38-126); Anion Gap 10 mmol/L (8-16); Aspartate Amino Transferase 30 U/L (17-59); Bilirubin,Total 0.6 mg/dL (0.2-1.3); Blood Urea Nitrogen 27 mg/dL (9-20); Calcium 9.5 mg/dL (8.4-10.2); Carbon Dioxide 24 mmol/L (22-30); Chloride 102 mmol/L (98-107); Estimated CRCL calculation 40 ml/min; Estimated Glomerular Filt Rate 36; Glucose 167 mg/dL (65-110); Potassium 4.2 mmol/L (3.4-5.0); Sodium 136 mmol/L (137-145)
[2021-06-29 07:19] LABS: Partial Thromboplastin Time 101.4 SECONDS (22.3-36.8)
[2021-06-29 08:21] LABS: Glucose Point of Care 152 mg/dl (65-105)
[2021-06-29] MEDS: HEPARIN SOD/D5W 100 UNITS/ML 25,000 UNITS/250 ML BAG 15 UNITS IV CONT (08:38)
--- NOTE | 2021-06-29 09:39 | PM.IMPN ---
Progress Note: A&P Assessment and Plan (1) Saddle pulmonary embolus: Qualifiers: Acute cor pulmonale presence: with acute cor pulmonale Chronicity: acute Qualified Code(s): I26.02 - Saddle embolus of pulmonary artery with acute cor pulmonale Code(s): I26.92 - Saddle embolus of pulmonary artery without acute cor pulmonale Status: Acute Assessment and Plan: Currently on heparin drip. Follow-up echocardiogram today. Plan to transition to NOAC. (2) Elevated troponin: Code(s): R77.8 - Other specified abnormalities of plasma proteins Status: Acute Assessment and Plan: Likely secondary to pulmonary embolism. No evidence of acute coronary syndrome. Cardiology following. Additional Plan The patient has new saddle embolism with no known recent travel, he does not have a sedentary lifestyle. Patient reports his sister has a history of clotting disorder. He had a recent colonoscopy that was normal and not suggestive of malignancy. His CT did not demonstrate any evidence of malignancy. He does have a family history of sister who had blood clots. Will send for factor 5 bleeding, and a thrombin 3 antigen, homocystine, antinuclear antibody screen, lupus anticoagulant and prothrombin gene assay. Will not check protein C and protein S is easily be artificially low in the setting of acute thrombus. Patient has been started on heparin drip per protocol. There is CT evidence of right heart strain. Will check echocardiogram to further evaluate cardiac structure and function. Patient does have elevated troponins but this is likely secondary to cardiac strain in the setting of saddle pulmonary embolism. Acute coronary ischemia is not likely. Patient has been admitted to the IMU for close monitoring. Subjective Date/time seen: 06/29/21 09:39 S: Patient was seen and examined at the bedside. He denies any complaints. Review of Systems Review of Systems: All systems reviewed & are unremarkable except as noted in HPI and below Exam Narrative: PHYSICAL EXAM: WEIGHT 85.6 kg BMI 25.6 General: No acute distress, well-developed well-nourished HEENT: Mucous membranes are moist, no oral pharyngeal erythema, no conjunctival pallor, no scleral icterus Respiratory: Clear to auscultation bilaterally, no increased work of breathing Cardiovascular: Regular rate, regular rhythm, 2+ bilateral radial pedal pulses, no JVD Gastrointestinal: Soft, nontender, nondistended, positive bowel sounds Skin: Non jaundice, no pallor Musculoskeletal: No clubbing, cyanosis or edema, no calf tenderness Neurological: Alert and oriented, speech is clear, no facial asymmetry Psychiatric: Appropriate mood and affect, pleasant and cooperative : Deferred Hematologic/lymphatic: No petechiae, no bruising, no anterior cervical or submandibular lymphadenopathy Objective Data Vital Signs Vital Signs: Vital Signs - 24 hr 06/28/21 11:44 06/28/21 11:45 06/28/21 11:46 Temperature Pulse Rate 100 98 95 Respiratory Rate 14 16 Blood Pressure 104/75 Pulse Oximetry 99 98 06/28/21 11:47 06/28/21 13:49 06/28/21 15:59 Temperature Pulse Rate 95 94 92 Respiratory Rate 15 14 15 Blood Pressure 118/74 120/78 Pulse Oximetry 98 97 97 06/28/21 16:25 06/28/21 16:30 06/28/21 18:00 Temperature Pulse Rate 102 H 102 H Respiratory Rate 19 20 17 Blood Pressure 101/81 Pulse Oximetry 98 06/28/21 18:01 06/28/21 18:07 06/28/21 18:12 Temperature Pulse Rate 100 101 H 104 H Respiratory Rate 20 16 17 Blood Pressure 106/80 106/80 Pulse Oximetry 99 98 06/28/21 20:18 06/28/21 21:51 06/28/21 22:30 Temperature 98.5 F Pulse Rate 98 99 112 H Respiratory Rate 18 18 16 Blood Pressure 101/83 109/85 146/76 H Pulse Oximetry 94 99 100 06/28/21 22:39 06/29/21 00:00 06/29/21 02:00 Temperature 98.4 F Pulse Rate 105 H 102 H 98 Respiratory Rate 16 Blood Pressure 139/74 Pulse Oximetry 100
[2021-06-29] MEDS: hydroCHLOROthiazide 12.5 MG CAPSULE PO (10:08)
[2021-06-29] MEDS: CHOLECALCIFEROL 1,000 UNITS TABLET 2000 UNITS PO (10:09)
[2021-06-29] MEDS: lisinopriL 10 MG TABLET PO (10:09)
[2021-06-29] MEDS: FENOFIBRATE 160 MG TABLET PO (10:09)
--- NOTE | 2021-06-29 11:07 | PM.CNCAR ---
Assessment and Plan Additional Plan This 61-year-old man with acute pulmonary embolism the reason for this is not clear at this time he is in good health and has been ambulatory not ill or immobilized. He has no prior history of unusual blood clots earlier in his life. The patient is anticoagulated with heparin which is appropriate at this time. He very fortunately is oxygenating well on room air at this time. Of significant concern is that he has a slight troponin elevation, of large dilated right ventricle and evidence of a saddle embolism on CT. For the time being systemic anticoagulation I believe is all that is indicated. I will reach out to the PE team at [facility] to obtain an opinion about this but at this time I do not believe they will believe that transfer for a pulmonary thromboembolectomy is indicated since he is comfortable and oxygenating well on room air. Jude Galaviz MD [facility] History of Present Illness History of Present Illness Consult date/time: 06/29/21 11:07 Reason For Visit: Elevated Troponin, Weakness Narrative: This is a 61-year-old patient I am seeing this morning at the request of the hospitalist because of elevation in his troponin level. The patient is not known to have any cardiac problems prior to this and came to the emergency room yesterday because of shortness of breath that began fairly suddenly on Tuesday. The patient states that he has usual in relatively good health and can carry on normal activities without any shortness of breath. States that on Tuesday he noticed fairly suddenly that his activities were limited because of shortness of breath with just modest walking around his house. He was not having any symptoms of chest pain pressure or heaviness diaphoresis or anything else that created concern. Because of his relatively sudden change in his health however he came into the emergency room yesterday and was evaluated. He was slightly tachycardic but in a normal sinus rhythm. He has a otherwise normal looking electrocardiogram. He had troponin levels done that were slightly elevated which prompted consulting me to see him. The levels are flat and 0.7 and declining from there. Following that phone call CTA of the chest was done which demonstrates a large pulmonary saddle embolism. There is evidence of right ventricular strain as well and in this setting I am seeing him in consultation. The patient is mildly tachycardic with heart rate of about 105. He is however saturating well at 97% on room air and is not hypotensive. Echocardiogram was done this morning and has not been officially read but briefly appeared to show a normal left ventricular size and contractility with some mild LVH very large right ventricle that is hypodynamic. The estimated PA pressures I did not see and the study has not yet been formally interpreted. In this setting I am seeing this man in consultation. He does have a history of hypertension for which he normally takes lisinopril with hydrochlorothiazide and type 2 diabetes where he takes metformin. He has a history of prostate cancer that was resected several years ago there has no been no evidence of metastatic disease to the best of his knowledge. Patient is a nonsmoker. Venous Dopplers were done which did not disclose any evidence of DVT. Labs were done for hypercoagulable states which of course are pending. Review of Systems Constitutional: Constitutional: Reports no additional constitutional complaints Eyes: Eyes: Reports no additional eye complaints ENT: Reports system reviewed and no additional complaints, except as documented Cardiovascular: Cardiovascular: Reports no additional cardiovascular complaints Respiratory: Respiratory: Reports as per HPI and Reports dyspnea Gastrointestinal: Gastrointestinal: Reports no additional gastrointestinal complaints Musculoskeletal: Musculoskeletal: Reports no additional musculoskeletal complaints Integumentary/Breasts:
[2021-06-29 12:16] LABS: Glucose Point of Care 175 mg/dl (65-105)
[2021-06-29 17:04] LABS: Glucose Point of Care 175 mg/dl (65-105)
[2021-06-29] MEDS: ATORVASTATIN 10 MG TABLET PO (20:13)
[2021-06-29 21:11] LABS: Glucose Point of Care 231 mg/dl (65-105)
[2021-06-30] VITALS (13 sets, daily range): BP systolic 106–128; BP diastolic 75–82; PULSE 71–102; RESP 14–20; TEMP 36.2–37; O2SAT 97–100
[2021-06-30] MEDS: HEPARIN SOD/D5W 100 UNITS/ML 25,000 UNITS/250 ML BAG 15 UNITS IV CONT ×2 (00:42→18:02)
[2021-06-30 05:03] LABS: Partial Thromboplastin Time 112.3 SECONDS (22.3-36.8)
[2021-06-30] MEDS: lisinopriL 10 MG TABLET PO (09:03)
[2021-06-30] MEDS: CHOLECALCIFEROL 1,000 UNITS TABLET 2000 UNITS PO (09:03)
[2021-06-30] MEDS: FENOFIBRATE 160 MG TABLET PO (09:03)
[2021-06-30] MEDS: hydroCHLOROthiazide 12.5 MG CAPSULE PO (09:04)
--- NOTE | 2021-06-30 09:15 | PM.IMPN ---
Progress Note: A&P Assessment and Plan (1) Saddle pulmonary embolus: Qualifiers: Acute cor pulmonale presence: with acute cor pulmonale Chronicity: acute Qualified Code(s): I26.02 - Saddle embolus of pulmonary artery with acute cor pulmonale Code(s): I26.92 - Saddle embolus of pulmonary artery without acute cor pulmonale Status: Acute Assessment and Plan: Currently on heparin drip. Stable hemodynamically and asymptomatic. Echocardiogram revealing dilated right ventricle with significant hypokinesia. Continue anticoagulation with heparin, monitor aPTT closely. Home per Cardiology, we will need a follow-up echo with Doppler in future to reassess RV function and PA pressures (2) Elevated troponin: Code(s): R77.8 - Other specified abnormalities of plasma proteins Status: Acute Assessment and Plan: Likely secondary to pulmonary embolism. No evidence of acute coronary syndrome. Cardiology following. Additional Plan The patient has new saddle embolism with no known recent travel, he does not have a sedentary lifestyle. Patient reports his sister has a history of lower extremity deep venous thrombosis, but it was secondary to prolonged trial. He had a recent colonoscopy that was normal and not suggestive of malignancy. His CT did not demonstrate any evidence of malignancy. He does have a family history of sister who had blood clots. Will send for factor 5 bleeding, and a thrombin 3 antigen, homocystine, antinuclear antibody screen, lupus anticoagulant and prothrombin gene assay. Will not check protein C and protein S is easily be artificially low in the setting of acute thrombus. Given significant for burden, we will continue the patient on heparin dropped. Her the time of discharge patient will be transitionned to a NOAC. Subjective Date/time seen: 06/30/21 07:00 S: Patient was seen and examined at the bedside. He is currently asymptomatic. He is feeling much better he reports improvement of his shortness of breaths. There is no other complaint. He denies chest pain palpitations dizziness or syncope. Review of Systems Review of Systems: All systems reviewed & are unremarkable except as noted in HPI and below Exam Narrative: PHYSICAL EXAM: WEIGHT 85.6 kg BMI 25.6 General: No acute distress, well-developed well-nourished HEENT: Mucous membranes are moist, no oral pharyngeal erythema, no conjunctival pallor, no scleral icterus Respiratory: Clear to auscultation bilaterally, no increased work of breathing Cardiovascular: Regular rate, regular rhythm, 2+ bilateral radial pedal pulses, no JVD Gastrointestinal: Soft, nontender, nondistended, positive bowel sounds Skin: Non jaundice, no pallor Musculoskeletal: No clubbing, cyanosis or edema, no calf tenderness Neurological: Alert and oriented, speech is clear, no facial asymmetry Psychiatric: Appropriate mood and affect, pleasant and cooperative : Deferred Hematologic/lymphatic: No petechiae, no bruising, no anterior cervical or submandibular lymphadenopathy Objective Data Vital Signs Vital Signs: Vital Signs - 24 hr 06/29/21 14:00 06/29/21 16:00 06/29/21 16:07 Temperature 96.9 F L Pulse Rate 101 H 102 H 104 H Respiratory Rate 18 Blood Pressure 115/78 Pulse Oximetry 97 06/29/21 18:00 06/29/21 20:00 06/29/21 22:00 Temperature 98 F Pulse Rate 100 100 92 Respiratory Rate 20 Blood Pressure 133/97 H Pulse Oximetry 99 06/30/21 00:00 06/30/21 02:00 06/30/21 04:00 Temperature 97.9 F 97.6 F Pulse Rate 87 86 86 Respiratory Rate 20 20 Blood Pressure 128/80 118/81 Pulse Oximetry 100 98 06/30/21 06:00 06/30/21 08:00 06/30/21 10:00 Temperature 97.7 F Pulse Rate 71 89 99 Respiratory Rate 14 Blood Pressure 116/82 Pulse Oximetry 97 06/30/21 12:00 Temperature 98.1 F Pulse Rate 102 H Respiratory Rate 16 Blood Pressure 106/76 Pulse Oximetry 98 Intake/Output Intake/Out
--- NOTE | 2021-06-30 09:45 | PM.PNCARD ---
Progress Note: A&P Assessment and Plan (1) Pulmonary embolism: Code(s): I26.99 - Other pulmonary embolism without acute cor pulmonale Status: Acute Assessment and Plan: Patient presented with shortness of breath, found to have multiple pulmonary emboli including saddle embolism, large clot burden, right heart strain on CTA chest. No DVT on lower extremity venous duplex. Family history of hypercoagulable state. Currently hemodynamically stable. Current rPESI score is 1. -anticoagulation with heparin, monitor aPTT closely. To be bridged to oral anticoagulant, probably 1 of the direct oral anticoagulants. -workup for hypercoagulable state per primary team. May consider Hematology evaluation. -monitor closely on telemetry. (2) Elevated troponin: Code(s): R77.8 - Other specified abnormalities of plasma proteins Status: Acute Assessment and Plan: Elevated troponin in the setting of pulmonary embolism. Normal LV systolic function. Dilated right ventricle with significant hypokinesia, RVSP 45 mmHg. Will need a follow-up echo with Doppler in future to reassess RV function and PA pressures. Subjective Date/time seen: 06/30/21 09:45 Date of Service: 06/30/2021 Interval history: Patient reports improvement in his shortness of breath. He denies any chest pain, palpitations, dizziness or syncope. Exam Narrative: PHYSICAL EXAMINATION: GENERAL: Alert, oriented, no acute distress MENTAL STATUS: affect appropriate to mood EYES: Extraocular movements intact, no pallor EARS: External ears appear normal, hearing grossly normal NOSE: Normal and patent, no discharge MOUTH: Mucous membranes moist, tongue normal NECK: Supple, no JVD CHEST: Good respiratory effort, clear to auscultation HEART: Normal rate, regular rhythm, normal S1 and S2, S4 gallop ABDOMEN: Soft, nontender NEUROLOGICAL: Alert, oriented, normal speech, no gross motor deficits MUSCULOSKELETAL: No major deformity, no amputation EXTREMITIES: No pedal edema, no clubbing, no cyanosis SKIN: no rash on the exposed area, no cyanosis PSYCHIATRIC: Normal mood, appropriate affect Objective Data Vital Signs Vital Signs: Vital Signs - 24 hr 06/29/21 10:00 06/29/21 12:00 06/29/21 12:18 Temperature 36.1 C L Pulse Rate 97 98 99 Respiratory Rate 20 Blood Pressure 120/85 Pulse Oximetry 98 06/29/21 14:00 06/29/21 16:00 06/29/21 16:07 Temperature 36.1 C L Pulse Rate 101 H 102 H 104 H Respiratory Rate 18 Blood Pressure 115/78 Pulse Oximetry 97 06/29/21 18:00 06/29/21 20:00 06/29/21 22:00 Temperature 36.6 C Pulse Rate 100 100 92 Respiratory Rate 20 Blood Pressure 133/97 H Pulse Oximetry 99 06/30/21 00:00 06/30/21 02:00 06/30/21 04:00 Temperature 36.6 C 36.4 C Pulse Rate 87 86 86 Respiratory Rate 20 20 Blood Pressure 128/80 118/81 Pulse Oximetry 100 98 06/30/21 06:00 06/30/21 08:00 Temperature 36.5 C Pulse Rate 71 89 Respiratory Rate 14 Blood Pressure 116/82 Pulse Oximetry 97 Intake/Output Intake/Output: Intake & Output 06/27/21 06/28/21 06/29/21 06/30/21 23:59 23:59 23:59 23:59 Intake Total 1250 970 750 Output Total 2300 1150 Balance 1250 -1330 -400 Meds/Results Medications: Active Medications Generic Name Dose Route Start Last Admin Trade Name Freq PRN Reason Stop Dose Admin Atorvastatin Calcium 10 mg 06/29/21 21:00 06/29/21 20:13 Atorvastatin 10 Mg Tablet PO 10 mg HS PATRICIA Administration Dextrose 12.5 gm 06/28/21 21:14 Dextrose 50% 25 Gm/50 Ml Syringe IV PUSH PRN PRN Hypoglycemia Protocol Fenofibrate 160 mg 06/29/21 09:00 06/30/21 09:03 Fenofibrate 160 Mg Tablet PO 160 mg DAILY PATRICIA Administration Glucagon 1 mg 06/28/21 21:14 Glucagon For Inj 1 Mg Vial IM PRN PRN Hypoglycemia Protocol Glucose 15 gm 06/28/21 21:14 Glucose Oral Gel 15 Gm Of Glucse In 37.5 Gm Tube PO
[2021-06-30 10:21] LABS: Glucose Point of Care 148 mg/dl (65-105)
[2021-06-30 11:05] LABS: Partial Thromboplastin Time 78.2 SECONDS (22.3-36.8)
[2021-06-30 12:41] LABS: Glucose Point of Care 242 mg/dl (65-105)
[2021-06-30] MEDS: INSULIN ASPART (*BKC) 100 UNITS/ML SUB-Q (12:44)
[2021-06-30 15:54] LABS: Glucose Point of Care 190 mg/dl (65-105)
[2021-06-30 17:31] LABS: Glucose Point of Care 139 mg/dl (65-105)
[2021-06-30 17:38] LABS: Partial Thromboplastin Time 68.9 SECONDS (22.3-36.8)
[2021-06-30] MEDS: HEPARIN SODIUM 5,000 UNITS/ML VIAL 3500 UNITS IV PUSH (18:01)
[2021-06-30 20:29] LABS: Glucose Point of Care 202 mg/dl (65-105)
[2021-06-30] MEDS: ATORVASTATIN 10 MG TABLET PO (20:57)
[2021-07-01] VITALS (14 sets, daily range): BP systolic 108–130; BP diastolic 68–82; PULSE 72–97; RESP 16–20; TEMP 36.4–37; O2SAT 97–99
[2021-07-01 00:57] LABS: Partial Thromboplastin Time 141.6 SECONDS (22.3-36.8)
--- NOTE | 2021-07-01 07:08 | PM.IMPN ---
Progress Note: A&P Assessment and Plan (1) Saddle pulmonary embolus: Qualifiers: Chronicity: acute Acute cor pulmonale presence: with acute cor pulmonale Qualified Code(s): I26.02 - Saddle embolus of pulmonary artery with acute cor pulmonale Code(s): I26.92 - Saddle embolus of pulmonary artery without acute cor pulmonale Status: Acute Assessment and Plan: Patient was diagnosed with bilateral pulmonary emboli saddle embolus; he is currently being treated with an heparin drip. Stable hemodynamically and asymptomatic. Echocardiogram revealing dilated right ventricle with significant hypokinesia. Continue anticoagulation with heparin, monitor aPTT closely. Home per Cardiology, we will need a follow-up echo with Doppler in future to reassess RV function and PA pressures (2) Elevated troponin: Code(s): R77.8 - Other specified abnormalities of plasma proteins Status: Acute Assessment and Plan: Likely secondary to pulmonary embolism. No evidence of acute coronary syndrome. Cardiology following. Additional Plan The patient has new saddle embolism with no known recent travel, he does not have a sedentary lifestyle. Patient reports his sister has a history of lower extremity deep venous thrombosis, but it was secondary to prolonged trial. He had a recent colonoscopy that was normal and not suggestive of malignancy. His CT did not demonstrate any evidence of malignancy. He does have a family history of sister who had blood clots. Will send for factor 5 bleeding, and a thrombin 3 antigen, homocystine, antinuclear antibody screen, lupus anticoagulant and prothrombin gene assay. Will not check protein C and protein S is easily be artificially low in the setting of acute thrombus. Given significant for burden, we will continue the patient on heparin dropped. Her the time of discharge patient will be transitionned to a NOAC. Subjective Date/time seen: 07/01/21 12:59 S: Patient was seen and examined at the bedside. He is currently asymptomatic. He is feeling much better; he denies shortness of breaths, chest pain palpitations dizziness or syncope Review of Systems Review of Systems: All systems reviewed & are unremarkable except as noted in HPI and below Constitutional: Constitutional: Reports as per HPI and Reports no additional constitutional complaints Eyes: Eyes: Reports as per HPI and Reports no additional eye complaints ENT: Reports system reviewed and no additional complaints, except as documented and Reports as per HPI Cardiovascular: Cardiovascular: Reports as per HPI, Reports no additional cardiovascular complaints, Denies chest pain, Denies chest pain at rest and Denies chest pain with activity Respiratory: Respiratory: Reports as per HPI, Reports no additional respiratory complaints, Denies dyspnea and Denies dyspnea on exertion Gastrointestinal: Gastrointestinal: Reports as per HPI and Reports no additional gastrointestinal complaints Genitourinary: Genitourinary: Reports no additional male genitourinary complaints and Reports as per HPI Musculoskeletal: Musculoskeletal: Reports no additional musculoskeletal complaints Integumentary/Breasts: Skin/Breast: Reports system reviewed and no additional complaints, except as docu Neurologic: Reports system reviewed and no additional complaints, except as documented Psychiatric: Psychiatric: Reports no additional psychiatric complaints Endocrine: Endocrine: Reports no additional endocrine complaints and Reports as per HPI Hematologic/Lymphatic: Hematologic/Lymphatic: Reports no additional hematologic/lymphatic complaints and Reports as per HPI Allergic/Immunologic: Allergic/Immunologic: Reports no additional allergic/immunologic complaints and Reports as per HPI Exam Narrative: PHYSICAL EXAM: WEIGHT 85.6 kg BMI 25.6 General: No acute distress, well-developed well-nourished HEENT: Mucous membranes are moist, no oral pharyngeal
[2021-07-01 08:51] LABS: Glucose Point of Care 151 mg/dl (65-105)
[2021-07-01] MEDS: CHOLECALCIFEROL 1,000 UNITS TABLET 2000 UNITS PO (09:08)
[2021-07-01] MEDS: hydroCHLOROthiazide 12.5 MG CAPSULE PO (09:08)
[2021-07-01] MEDS: FENOFIBRATE 160 MG TABLET PO (09:08)
[2021-07-01] MEDS: lisinopriL 10 MG TABLET PO (09:08)
[2021-07-01] MEDS: HEPARIN SODIUM 5,000 UNITS/ML VIAL 3500 UNITS IV PUSH (10:00)
[2021-07-01] MEDS: INSULIN ASPART (*BKC) 100 UNITS/ML SUB-Q (12:53)
[2021-07-01 13:05] LABS: Glucose Point of Care 207 mg/dl (65-105)
[2021-07-01] MEDS: HEPARIN SOD/D5W 100 UNITS/ML 25,000 UNITS/250 ML BAG 14 UNITS IV CONT (13:45)
[2021-07-01 16:44] LABS: Homocysteine 22.3 umol/L (<11.4)
[2021-07-01 17:11] LABS: Partial Thromboplastin Time 107.9 SECONDS (22.3-36.8)
[2021-07-01 17:53] LABS: Glucose Point of Care 168 mg/dl (65-105)
[2021-07-01 17:59] LABS: Anti-Thrombin III Antigen 67 % (80-120)
[2021-07-01 19:55] LABS: Glucose Point of Care 210 mg/dl (65-105)
[2021-07-01] MEDS: ATORVASTATIN 10 MG TABLET PO (20:31)
[2021-07-02] VITALS (12 sets, daily range): BP systolic 100–137; BP diastolic 74–78; PULSE 70–104; RESP 18–21; TEMP 36.3–37.1; O2SAT 97–100
[2021-07-02 00:54] LABS: Partial Thromboplastin Time 77.6 SECONDS (22.3-36.8)
[2021-07-02 05:41] LABS: Hexagonal Phase Confirm Negative (Negative); Lupus dRVVT 1:1 Mix Interpreta Not Indicated; Lupus dRVVT Screen 31 sec (<=45); PTT-LA Screen 113 sec (<=40)
[2021-07-02 07:28] LABS: Partial Thromboplastin Time 64.3 SECONDS (22.3-36.8)
[2021-07-02 07:52] LABS: Glucose Point of Care 138 mg/dl (65-105)
[2021-07-02] MEDS: HEPARIN SODIUM 5,000 UNITS/ML VIAL 3500 UNITS IV PUSH (08:41)
[2021-07-02] MEDS: FENOFIBRATE 160 MG TABLET PO (08:42)
[2021-07-02] MEDS: hydroCHLOROthiazide 12.5 MG CAPSULE PO (08:42)
[2021-07-02] MEDS: lisinopriL 10 MG TABLET PO (08:42)
[2021-07-02] MEDS: CHOLECALCIFEROL 1,000 UNITS TABLET 2000 UNITS PO (08:42)
--- NOTE | 2021-07-02 09:03 | PM.IMPN ---
Progress Note: A&P Assessment and Plan (1) Saddle pulmonary embolus: Qualifiers: Chronicity: acute Acute cor pulmonale presence: with acute cor pulmonale Qualified Code(s): I26.02 - Saddle embolus of pulmonary artery with acute cor pulmonale Code(s): I26.92 - Saddle embolus of pulmonary artery without acute cor pulmonale Status: Acute Assessment and Plan: Patient was diagnosed with bilateral pulmonary emboli saddle embolus; he is currently being treated with an heparin drip. Stable hemodynamically and asymptomatic. Echocardiogram revealing dilated right ventricle with significant hypokinesia. Continue anticoagulation with heparin, monitor aPTT closely. Home per Cardiology, we will need a follow-up echo with Doppler in future to reassess RV function and PA pressures (2) Elevated troponin: Code(s): R77.8 - Other specified abnormalities of plasma proteins Status: Acute Assessment and Plan: Likely secondary to pulmonary embolism. No evidence of acute coronary syndrome. Cardiology following. Additional Plan The patient has new saddle embolism with no known recent travel, he does not have a sedentary lifestyle. Patient reports his sister has a history of lower extremity deep venous thrombosis, but it was secondary to prolonged trial. He had a recent colonoscopy that was normal and not suggestive of malignancy. His CT did not demonstrate any evidence of malignancy. He does have a family history of sister who had blood clots. Will send for factor 5 bleeding, and a thrombin 3 antigen, homocystine, antinuclear antibody screen, lupus anticoagulant and prothrombin gene assay. Will not check protein C and protein S is easily be artificially low in the setting of acute thrombus. Given significant for burden, we will continue the patient on heparin dropped. Her the time of discharge patient will be transitionned to a NOAC. thrombophilic workup may be warranted; unclear the validity of these investigations in the setting of an acute event. Follow up with hematology as an outpatient. Subjective Date/time seen: 07/02/21 08:03 S: Patient was seen examined at the bedside. Did not have complaints. He is comfortable. Review of Systems Review of Systems: All systems reviewed & are unremarkable except as noted in HPI and below Constitutional: Constitutional: Reports as per HPI and Reports no additional constitutional complaints Eyes: Eyes: Reports as per HPI and Reports no additional eye complaints ENT: Reports system reviewed and no additional complaints, except as documented and Reports as per HPI Cardiovascular: Cardiovascular: Reports as per HPI, Reports no additional cardiovascular complaints, Denies chest pain, Denies chest pain at rest, Denies chest pain with activity, Denies dyspnea and Denies dyspnea on exertion Respiratory: Respiratory: Reports as per HPI, Reports no additional respiratory complaints, Denies dyspnea and Denies dyspnea on exertion Gastrointestinal: Gastrointestinal: Reports as per HPI and Reports no additional gastrointestinal complaints Genitourinary: Genitourinary: Reports no additional male genitourinary complaints and Reports as per HPI Musculoskeletal: Musculoskeletal: Reports no additional musculoskeletal complaints Integumentary/Breasts: Skin/Breast: Reports system reviewed and no additional complaints, except as docu Neurologic: Reports system reviewed and no additional complaints, except as documented Psychiatric: Psychiatric: Reports no additional psychiatric complaints Endocrine: Endocrine: Reports no additional endocrine complaints and Reports as per HPI Hematologic/Lymphatic: Hematologic/Lymphatic: Reports no additional hematologic/lymphatic complaints and Reports as per HPI Allergic/Immunologic: Allergic/Immunologic: Reports no additional allergic/immunologic complaints and Reports as per HPI Exam Narrative: PHYSICAL EXAM: WEIGHT 85.6 kg BMI 25.6
[2021-07-02] MEDS: HEPARIN SOD/D5W 100 UNITS/ML 25,000 UNITS/250 ML BAG 14 UNITS IV CONT (10:05)
--- NOTE | 2021-07-02 10:35 | PM.PNCARD ---
Progress Note: A&P Assessment and Plan (1) Pulmonary embolism: Code(s): I26.99 - Other pulmonary embolism without acute cor pulmonale <VISH Saxena - Last Filed: 07/02/21 10:50> Status: Acute <VISH Saxena - Last Filed: 07/02/21 10:50> Assessment and Plan: Patient presented with shortness of breath, found to have multiple pulmonary emboli including saddle embolism, large clot burden, right heart strain on CTA chest. No DVT on lower extremity venous duplex. Family history of hypercoagulable state. Currently hemodynamically stable. -anticoagulation with heparin, monitor aPTT closely. To be bridged to oral anticoagulant, probably 1 of the direct oral anticoagulants. -workup for hypercoagulable state per primary team. May consider Hematology evaluation. -monitor closely on telemetry. <VISH Saxena - Last Filed: 07/02/21 10:50> (2) Elevated troponin: Code(s): R77.8 - Other specified abnormalities of plasma proteins <VISH Saxena - Last Filed: 07/02/21 10:50> Status: Acute <VISH Saxena - Last Filed: 07/02/21 10:50> Assessment and Plan: Elevated troponin in the setting of pulmonary embolism. Normal LV systolic function. Dilated right ventricle with significant hypokinesia, RVSP 45 mmHg. Will arrange follow-up in our office for echo with Doppler to reassess RV function and PA pressures. Cardiology will sign off for now. Please do not hesitate to contact us if we can be of assistance in the care of this patient any way. <VISH Saxena - Last Filed: 07/02/21 10:50> Additional Plan Attending addendum: I agree with the above documentation and plan of care as outlined. <Robi King MD - Last Filed: 07/02/21 12:14> Subjective Date/time seen: 07/02/21 10:35 <VISH Saxena - Last Filed: 07/02/21 10:50> Interval history: Cardiology follow-up for elevated troponin Date of service 07/02/2021: Feeling well this morning and does not have any complaints. He has been walking around his room and has not had any shortness of breath. Denies any chest pain. He remains on heparin currently. <VISH Saxena - Last Filed: 07/02/21 10:50> Review of Systems Constitutional: Constitutional: Reports no additional constitutional complaints <VISH Saxena - Last Filed: 07/02/21 10:50> Eyes: Eyes: Reports no additional eye complaints <VISH Saxena - Last Filed: 07/02/21 10:50> ENT: Reports system reviewed and no additional complaints, except as documented <VISH Saxena - Last Filed: 07/02/21 10:50> Cardiovascular: Cardiovascular: Reports no additional cardiovascular complaints and Reports dyspnea <VISH Saxena - Last Filed: 07/02/21 10:50> Respiratory: Respiratory: Reports as per HPI and Reports dyspnea <VISH Saxena - Last Filed: 07/02/21 10:50> Gastrointestinal: Gastrointestinal: Reports no additional gastrointestinal complaints <VISH Saxena - Last Filed: 07/02/21 10:50> Musculoskeletal: Musculoskeletal: Reports no additional musculoskeletal complaints <VISH Saxena - Last Filed: 07/02/21 10:50> Integumentary/Breasts: Skin/Breast: Reports system reviewed and no additional complaints, except as docu <VISH Saxena - Last Filed: 07/02/21 10:50> Endocrine: Endocrine: Reports no additional endocrine complaints <VISH Saxena - Last Filed: 07/02/21 10:50> Hematologic/Lymphatic: Hematologic/Lymphatic: Reports no additional hematologic/lymphatic complaints <VISH Saxena - Last Filed: 07/02/21 10:50> Allergic/Immunologic: Allergic/Immunologic: Reports no additional allergic/immunologic complaints <VISH Saxena - Last Filed: 07/02/21 10:50> Exam Const: General: comfortable and no acute distress <Mirna Ashby APN-C - Last Filed: 07/02/21 10:50> Other: Pleasant gentlem
[2021-07-02 11:50] LABS: Glucose Point of Care 252 mg/dl (65-105)
[2021-07-02] MEDS: INSULIN ASPART (*BKC) 100 UNITS/ML SUB-Q (14:40)
[2021-07-02 15:14] LABS: Partial Thromboplastin Time 103.7 SECONDS (22.3-36.8)
[2021-07-02 16:58] LABS: Glucose Point of Care 162 mg/dl (65-105)
--- NOTE | 2021-07-02 18:09 | PC.NURSE ---
This patient, Naren Box, was transferred to [[id number] ] on 07/02/21 at 1809. Personal belongings sent with patient. Report given to [PENELOPE Castellon @ [phone] ]. Appropriate documentation sent with patient. Delay in transfer d/t patient eating dinner prior to transfer
--- NOTE | 2021-07-02 18:17 | PC.NURSE ---
This patient, Naren Box, was received from IMU on 07/02/21 at 1800. Patient/family oriented to unit policies and routines
[2021-07-02] MEDS: ATORVASTATIN 10 MG TABLET PO (22:00)
[2021-07-02 22:11] LABS: Glucose Point of Care 187 mg/dl (65-105)
[2021-07-03] VITALS: BP 106/65; PULSE 78; RESP 20; TEMP 36.4; O2SAT 96
[2021-07-03] MEDS: HEPARIN SOD/D5W 100 UNITS/ML 25,000 UNITS/250 ML BAG 14 UNITS IV CONT (03:58)
[2021-07-03 04:39] VITALS: BP 105/75; PULSE 74; RESP 20; TEMP 36.2; O2SAT 96
[2021-07-03 06:01] LABS: Partial Thromboplastin Time 104.4 SECONDS (22.3-36.8)
[2021-07-03 07:48] LABS: Basophils Absolute Auto 0.1 K/mm3 (0.0-0.1); Eosinophils Absolute Auto 0.2 K/mm3 (0-0.3); Eosinophils Percent Auto 2.8 % (0-4.4); Hematocrit 37.5 % (42.0-52.0); Hemoglobin 12.6 g/dL (14.0-18.0); Immature Granulocyte Absolute 0.04 K/mm3 (0.00-0.031); Immature Granulocyte Percent A 0.6 % (0-0.5); Lymphocytes Absolute Auto 1.77 K/mm3 (0.9-3.2); Mean Corpuscular HGB Conc 33.6 g/dl (32-36); Mean Corpuscular Hemoglobin 31.7 pg (26-34); Mean Corpuscular Volume 94.2 fl (80-100); Mean Platelet Volume 9.9 fl (7.4-10.4); Monocytes Absolute Auto 0.5 K/mm3 (0.1-0.6); Monocytes Percent Auto 7.3 % (2.6-8.5); Neutrophils Absolute Auto 4.5 K/mm3 (1.3-6.7); Neutrophils Percent Auto 63.3 % (45.5-73.1); Platelet Count Result 313 k/mm3 (150-375); Red Blood Count 3.98 M/mm3 (4.6-6.20); Red Cell Distribution Width 12.1 % (11.5-14.5); White Blood Count 7.1 K/mm3 (4.5-10.0)
[2021-07-03 07:54] LABS: Anion Gap 9 mmol/L (8-16); Blood Urea Nitrogen 40 mg/dL (9-20); Calcium 9.6 mg/dL (8.4-10.2); Carbon Dioxide 24 mmol/L (22-30); Chloride 98 mmol/L (98-107); Estimated CRCL calculation 34 ml/min; Estimated Glomerular Filt Rate 30; Glucose 144 mg/dL (65-110); Potassium 4.3 mmol/L (3.4-5.0); Sodium 131 mmol/L (137-145)
[2021-07-03 07:59] LABS: Glucose Point of Care 149 mg/dl (65-105)
[2021-07-03 08:08] VITALS: BP 111/77
[2021-07-03 08:14] VITALS: O2SAT 96
[2021-07-03] MEDS: CHOLECALCIFEROL 1,000 UNITS TABLET 2000 UNITS PO (08:14)
[2021-07-03] MEDS: FENOFIBRATE 160 MG TABLET PO (08:14)
[2021-07-03 11:49] LABS: Glucose Point of Care 135 mg/dl (65-105)
[2021-07-03 13:26] VITALS: BP 105/70; PULSE 77; RESP 14; TEMP 36.2; O2SAT 96
[2021-07-03 16:45] LABS: Glucose Point of Care 185 mg/dl (65-105)
[2021-07-03] MEDS: APIXABAN 5 MG TABLET 10 MG PO (17:08)
--- NOTE | 2021-07-03 17:40 | PM.IMPN ---
Progress Note: A&P Assessment and Plan (1) Saddle pulmonary embolus: Qualifiers: Chronicity: acute Acute cor pulmonale presence: with acute cor pulmonale Qualified Code(s): I26.02 - Saddle embolus of pulmonary artery with acute cor pulmonale Code(s): I26.92 - Saddle embolus of pulmonary artery without acute cor pulmonale Status: Acute Assessment and Plan: Patient was diagnosed with bilateral pulmonary emboli saddle embolus; he was transitioned to NOAC today. Stable hemodynamically and asymptomatic. Echocardiogram revealing dilated right ventricle with significant hypokinesia. Continue anticoagulation with heparin, monitor aPTT closely. Home per Cardiology, we will need a follow-up echo with Doppler in future to reassess RV function and PA pressures (2) Elevated troponin: Code(s): R77.8 - Other specified abnormalities of plasma proteins Status: Acute Assessment and Plan: Likely secondary to pulmonary embolism. No evidence of acute coronary syndrome. Cardiology following. Additional Plan The patient has new saddle embolism with no known recent travel, he does not have a sedentary lifestyle. Patient reports his sister has a history of lower extremity deep venous thrombosis, but it was secondary to prolonged trial. He had a recent colonoscopy that was normal and not suggestive of malignancy. His CT did not demonstrate any evidence of malignancy. He does have a family history of sister who had blood clots. Will send for factor 5 bleeding, and a thrombin 3 antigen, homocystine, antinuclear antibody screen, lupus anticoagulant and prothrombin gene assay. Will not check protein C and protein S is easily be artificially low in the setting of acute thrombus. Given significant for burden, we will continue the patient on heparin dropped. Her the time of discharge patient will be transitionned to a NOAC. thrombophilic workup may be warranted; unclear the validity of these investigations in the setting of an acute event. Follow up with hematology as an outpatient. Subjective Date/time seen: 07/03/21 14:00 S: Patient was seen examined at the bedside denies any complaints; he was in very good spirits. Review of Systems Review of Systems: All systems reviewed & are unremarkable except as noted in HPI and below Constitutional: Constitutional: Reports as per HPI and Reports no additional constitutional complaints Eyes: Eyes: Reports as per HPI and Reports no additional eye complaints ENT: Reports system reviewed and no additional complaints, except as documented and Reports as per HPI Cardiovascular: Cardiovascular: Reports as per HPI, Reports no additional cardiovascular complaints, Denies chest pain, Denies chest pain at rest, Denies chest pain with activity, Denies dyspnea and Denies dyspnea on exertion Respiratory: Respiratory: Reports as per HPI, Reports no additional respiratory complaints, Denies dyspnea and Denies dyspnea on exertion Gastrointestinal: Gastrointestinal: Reports as per HPI and Reports no additional gastrointestinal complaints Genitourinary: Genitourinary: Reports no additional male genitourinary complaints and Reports as per HPI Musculoskeletal: Musculoskeletal: Reports no additional musculoskeletal complaints Integumentary/Breasts: Skin/Breast: Reports system reviewed and no additional complaints, except as docu Neurologic: Reports system reviewed and no additional complaints, except as documented Psychiatric: Psychiatric: Reports no additional psychiatric complaints Endocrine: Endocrine: Reports no additional endocrine complaints and Reports as per HPI Hematologic/Lymphatic: Hematologic/Lymphatic: Reports no additional hematologic/lymphatic complaints and Reports as per HPI Allergic/Immunologic: Allergic/Immunologic: Reports no additional allergic/immunologic complaints and Reports as per HPI Exam Narrative: PHYSICAL EXAM: WEIGHT 85.6 kg BMI 25.6 General:
[2021-07-03] MEDS: ATORVASTATIN 10 MG TABLET PO (19:51)
[2021-07-03 20:14] VITALS: BP 103/73; PULSE 72; RESP 20; TEMP 36.3; O2SAT 98
[2021-07-03 21:35] LABS: Glucose Point of Care 186 mg/dl (65-105)
[2021-07-04 04:39] VITALS: BP 121/76; PULSE 86; RESP 20; TEMP 36.5; O2SAT 98
[2021-07-04] MEDS: APIXABAN 5 MG TABLET 10 MG PO (05:16)
[2021-07-04 05:58] LABS: Basophils Absolute Auto 0.1 K/mm3 (0.0-0.1); Basophils Percent Auto 0.7 % (0.2-1.2); Eosinophils Absolute Auto 0.2 K/mm3 (0-0.3); Eosinophils Percent Auto 2.6 % (0-4.4); Hematocrit 37.7 % (42.0-52.0); Hemoglobin 12.9 g/dL (14.0-18.0); Immature Granulocyte Absolute 0.05 K/mm3 (0.00-0.031); Immature Granulocyte Percent A 0.7 % (0-0.5); Lymphocytes Absolute Auto 1.41 K/mm3 (0.9-3.2); Lymphocytes Percent Auto 19.6 % (18.3-44.2); Mean Corpuscular HGB Conc 34.2 g/dl (32-36); Mean Corpuscular Hemoglobin 32.1 pg (26-34); Mean Corpuscular Volume 93.8 fl (80-100); Mean Platelet Volume 9.6 fl (7.4-10.4); Monocytes Absolute Auto 0.6 K/mm3 (0.1-0.6); Monocytes Percent Auto 8.5 % (2.6-8.5); Neutrophils Absolute Auto 4.9 K/mm3 (1.3-6.7); Neutrophils Percent Auto 67.9 % (45.5-73.1); Platelet Count Result 311 k/mm3 (150-375); Red Blood Count 4.02 M/mm3 (4.6-6.20); Red Cell Distribution Width 12.1 % (11.5-14.5); White Blood Count 7.2 K/mm3 (4.5-10.0)
[2021-07-04 06:13] LABS: Anion Gap 10 mmol/L (8-16); Blood Urea Nitrogen 42 mg/dL (9-20); Calcium 9.8 mg/dL (8.4-10.2); Carbon Dioxide 24 mmol/L (22-30); Chloride 100 mmol/L (98-107); Estimated CRCL calculation 33 ml/min; Estimated Glomerular Filt Rate 29; Glucose 134 mg/dL (65-110); Potassium 4.6 mmol/L (3.4-5.0); Sodium 134 mmol/L (137-145)
[2021-07-04 06:20] LABS: Partial Thromboplastin Time 34.3 SECONDS (22.3-36.8)
[2021-07-04 07:55] LABS: Glucose Point of Care 125 mg/dl (65-105)
[2021-07-04] MEDS: FENOFIBRATE 160 MG TABLET PO (08:15)
[2021-07-04] MEDS: CHOLECALCIFEROL 1,000 UNITS TABLET 2000 UNITS PO (08:15)
[2021-07-04] MEDS: hydroCHLOROthiazide 12.5 MG CAPSULE PO (08:15)
[2021-07-04] MEDS: lisinopriL 10 MG TABLET PO (08:15)
--- NOTE | 2021-07-04 17:53 | PM.DS ---
DS: Admitting Diagnosis Discharge Date 07/04/21 Admitting Diagnosis (1) Saddle pulmonary embolus. (2)Elevated troponin. DS: Discharge Diagnosis Discharge Diagnosis (1) Saddle pulmonary embolus: Qualifiers: Chronicity: acute Acute cor pulmonale presence: with acute cor pulmonale Qualified Code(s): I26.02 - Saddle embolus of pulmonary artery with acute cor pulmonale Code(s): I26.92 - Saddle embolus of pulmonary artery without acute cor pulmonale Status: Acute Assessment and Plan: Patient was diagnosed with bilateral pulmonary emboli saddle embolus; patient was maintained on have EM in drip form his admission on 06/29/2019 to through 2021 when he was transitioned to NOAC yesterday. His hospital l stay was uneventful. He remained stable hemodynamically and asymptomatic. He was kept on IV a heparin drip due to is extensive bilateral pulmonary emboli. Echocardiogram revealing dilated right ventricle with significant hypokinesia. His aPTT was monitored closely. Per Cardiology, we will need a follow-up echo with Doppler in future to reassess RV function and PA pressures (2) Elevated troponin: Code(s): R77.8 - Other specified abnormalities of plasma proteins Status: Acute Assessment and Plan: Likely secondary to pulmonary embolism. No evidence of acute coronary syndrome. Cardiology following. (3) CKD (chronic kidney disease) stage 3, GFR 30-59 ml/min: Qualifiers: Chronic kidney disease stage 3 subtype: stage 3b (GFR 30-44) Qualified Code(s): N18.32 - Chronic kidney disease, stage 3b Code(s): N18.3 - Chronic kidney disease, stage 3 (moderate) Status: Acute Assessment and Plan: Likely secondary to chronic diabetes mellitus. Baseline creatinine 1.8-2.3. His creatinine remained within his baseline throughout the admission. (4) Adenocarcinoma of prostate: Code(s): C61 - Malignant neoplasm of prostate Status: Acute Assessment and Plan: Follow-up with primary care provider as an outpatient. (5) Type 2 diabetes mellitus without complication, without long-term current use of insulin: Code(s): E11.9 - Type 2 diabetes mellitus without complications Status: Acute Assessment and Plan: Patient was managed with insulin sliding-scale. Accu-Cheks are in the 125-186 range within 24 of discharge. Fasting blood sugar was 2134 on the day of discharge (6) Essential (primary) hypertension: Code(s): I10 - Essential (primary) hypertension Status: Acute Assessment and Plan: Blood pressure was well controlled. Patient was maintained on hydrochlorothiazide 12.5 mg p.o. daily and lisinopril 10 mg p.o. daily. DS: Summary Hospital Course Reason for hospitalization: Weakness, shortness of breath. Hospital Course: Please refer to admission history and physical. Briefly, this is a 61-year-old gentleman with a past medical history of chronic kidney disease, diabetes, hypertension and prostate cancer status post resection who presented to the ER for weakness. The patient reports that for the last couple of days he has felt short of breath. He was so short of breath that he did not feel like he exerting himself to climb the stairs to go to bed. He subsequently tried to sleep on the couch and could not get any rest. He thought that his symptoms were due to hyperglycemia. His glucoses have been between 250 and 300. He reports that his glucoses are not usually over 150. He denies any recent changes in his diet. He has not had any fevers or chills. He has not had any cough or congestion. He had his Enclarity COVID booster before . He has not had any recent changes in medications. He does not have a personal history of blood clots. His sister did have a history of blood clots but he does not know if she had any associated conditions that may have led to her blood clots. His sister was over 20 years his senior. He h
[2021-07-04 23:17] LABS: Factor V (Leiden) Mutation NEGATIVE
== END 2021-07-04 12:25 | disposition home or self-care (01) | DRG 175 ==
LOC: ANHED 13:35 → ANHIMU 14:17 → ANH2MED 07-02 18:05
PROVIDERS: Internal Medicine; Specialist; Admitting Provider Student in an Organized Health Care Education/Training Program; Emergency Provider Emergency Medicine; PCP Family Medicine; Visit Provider Student in an Organized Health Care Education/Training Program
DX: I26.02 Saddle embolus of pulmonary artery with acute cor pulmonale (principal); R77.8 Other specified abnormalities of plasma proteins; R53.1 Weakness; I12.9 Hypertensive chronic kidney disease with stage 1 through stage 4 chronic kidney disease, or unspecified chronic kidney disease; E78.5 Hyperlipidemia, unspecified; E03.9 Hypothyroidism, unspecified; E11.22 Type 2 diabetes mellitus with diabetic chronic kidney disease; K21.9 Gastro-esophageal reflux disease without esophagitis; M19.90 Unspecified osteoarthritis, unspecified site; N18.30 Chronic kidney disease, stage 3 unspecified; Z90.79 Acquired absence of other genital organ(s); Z20.822 Contact with and (suspected) exposure to COVID-19; Z85.46 Personal history of malignant neoplasm of prostate; Z79.84 Long term (current) use of oral hypoglycemic drugs
CPT/HCPCS: 36415; 71045; 71275; 80048; 80053; 81001; 81240; 81241; 82948; 83090; 83880; 84484; 85025; 85301; 85380; 85598; 85610; 85613; 85730; 86038; 87426; 93005; 93306; 93970; 96361; 96365; 96376; 99291; A9270; C9803; J1644; J1815; J7030; Q9967

== ENCOUNTER 2021-12-21 13:34 | Outpatient (CLI) | payer OTHER, SELFPAY ==
[2021-12-21 15:38] LABS: Folic Acid > 20.0 ng/mL (2.76->20)
[2021-12-27 14:15] LABS: Methylmalonic Acid 398 nmol/L (87-318)
== END 2021-12-21 13:35 | disposition home or self-care (01) ==
LOC: ANHLAB 13:36
PROVIDERS: PCP Family Medicine; Visit Provider Internal Medicine Hematology & Oncology
DX: I26.92 Saddle embolus of pulmonary artery without acute cor pulmonale (principal)
CPT/HCPCS: 36415; 82607; 82746; 83921

== ENCOUNTER 2022-03-23 15:53 | Outpatient (CLI) | payer OTHER, SELFPAY ==
[2022-03-25 16:51] LABS: Homocysteine 20.8 umol/L (<11.4)
== END 2022-03-23 15:54 | disposition home or self-care (01) ==
LOC: ANHLAB 15:54
PROVIDERS: PCP Family Medicine; Visit Provider Internal Medicine Hematology & Oncology
DX: I26.92 Saddle embolus of pulmonary artery without acute cor pulmonale (principal)
CPT/HCPCS: 36415; 83090

== ENCOUNTER 2022-06-29 14:34 | Outpatient (CLI) | payer OTHER, SELFPAY ==
[2022-07-02 17:37] LABS: Homocysteine 22.8 umol/L (<11.4)
== END 2022-06-29 14:35 | disposition home or self-care (01) ==
PROVIDERS: PCP Family Medicine; Visit Provider Internal Medicine Hematology & Oncology
DX: I26.92 Saddle embolus of pulmonary artery without acute cor pulmonale (principal)
CPT/HCPCS: 36415; 82607; 83090

== ENCOUNTER 2023-03-23 13:23 | Outpatient (CLI) | payer MEDICARE, SELFPAY ==
[2023-03-23 16:29] LABS: Iron 102 ug/dL (49-181)
[2023-03-23 16:47] LABS: Anion Gap 9 mmol/L (8-16); Blood Urea Nitrogen 30 mg/dL (9-20); Calcium 9.9 mg/dL (8.4-10.2); Carbon Dioxide 22 mmol/L (22-30); Chloride 105 mmol/L (98-107); Estimated Glomerular Filt Rate 38; Glucose 85 mg/dL (65-110); Potassium 4.5 mmol/L (3.4-5.0); Sodium 136 mmol/L (137-145)
[2023-03-23 17:23] LABS: Percent Iron Saturation 21 % (20-50)
[2023-03-23 17:41] LABS: Folic Acid > 20.0 ng/mL (2.76->20); Vitamin B12 > 1000.0 pg/mL (239-931)
== END 2023-03-23 13:24 | disposition home or self-care (01) ==
PROVIDERS: PCP Family Medicine; Visit Provider Internal Medicine Hematology & Oncology
DX: D64.9 Anemia, unspecified (principal)
CPT/HCPCS: 36415; 80048; 82607; 82728; 82746; 83540; 83550

== ENCOUNTER 2024-02-09 10:40 | Outpatient (CLI) | payer MEDICARE, SELFPAY ==
[2024-02-09 11:09] LABS: Basophils Absolute Auto 0.1 K/mm3 (0.0-0.1); Basophils Percent Auto 0.9 % (0.2-1.2); Eosinophils Absolute Auto 0.1 K/mm3 (0-0.3); Eosinophils Percent Auto 1.1 % (0-4.4); Hematocrit 36.2 % (42.0-52.0); Hemoglobin 12.4 g/dL (14.0-18.0); Immature Granulocyte Absolute 0.03 K/mm3 (0.00-0.031); Immature Granulocyte Percent A 0.4 % (0-0.5); Lymphocytes Absolute Auto 1.75 K/mm3 (0.9-3.2); Lymphocytes Percent Auto 21.3 % (18.3-44.2); Mean Corpuscular HGB Conc 34.3 g/dl (32-36); Mean Corpuscular Hemoglobin 32.5 pg (26-34); Mean Corpuscular Volume 94.8 fl (80-100); Mean Platelet Volume 9.7 fl (7.4-10.4); Monocytes Absolute Auto 0.7 K/mm3 (0.1-0.6); Monocytes Percent Auto 7.9 % (2.6-8.5); Neutrophils Absolute Auto 5.6 K/mm3 (1.3-6.7); Neutrophils Percent Auto 68.4 % (45.5-73.1); Platelet Count Result 313 k/mm3 (150-375); Red Blood Count 3.82 M/mm3 (4.6-6.20); Red Cell Distribution Width 11.9 % (11.5-14.5); White Blood Count 8.2 K/mm3 (4.5-10.0)
[2024-02-09 11:14] LABS: Blood Urea Nitrogen 29 mg/dL (8-26); Carbon Dioxide 24 mmol/L (22-30); Chloride 101 mmol/L (98-109); Estimated Glomerular Filt Rate 30; Glucose 253 mg/dL (70-105); Ionized Calcium (POC) 1.27 mmol/L (1.11-1.31); Potassium 4.4 mmol/L (3.5-4.9); Sodium 136 mmol/L (138-146)
== END 2024-02-09 10:41 | disposition home or self-care (01) ==
PROVIDERS: PCP Family Medicine; Visit Provider Internal Medicine Hematology & Oncology
DX: D64.9 Anemia, unspecified (principal)
CPT/HCPCS: 36415; 80047; 85025

== ENCOUNTER 2025-06-26 11:13 | Emergency (ER) | payer MEDICARE, SELFPAY ==
--- NOTE | ~2025-06-26 | US_ITS ---
RIGHT LOWER EXTREMITY VENOUS DUPLEX Clinical History: R calf swelling COMPARISON: 06/28/2021 TECHNIQUE: Grayscale, color, duplex/spectral Doppler sonography right leg FINDINGS/IMPRESSION: 1. Extensive occlusive thrombus common femoral vein through calf veins. Reviewed, dictated and finalized at location R. [facility] [employer]
[2025-06-26 11:26] VITALS: BP 132/82; PULSE 82; RESP 20; TEMP 36.4; O2SAT 100
--- OUTSIDE RECORDS SUMMARY | 2025-06-26 11:34 | XMS_ITS | Clinical Summary ---
Author Organization [facility] [address] Address [address] [place] [address] Care Team Providers Care Vaccine Manager Name Role Phone Jamil Travis MD Primary Care Provider Allergies Active Allergy Reactions Criticality Noted Date Comments Tadalafil Unknown 01/14/2019 Medications Eliquis 5 mg tablet 07/14/2021 Active fenofibrate (TRIGLIDE) 160 mg tablet 05/16/2021 Active metFORMIN (GLUCOPHAGE) 1,000 mg tablet 07/17/2021 Act home lisinopril-hydro CHLOROthiazide (ZESTORETIC) 10-12.5 mg per tablet 05/20/2021 Active atorvastatin (LIPITOR) 10 mg tablet Take by mouth 08/07/2017 Active cholecalciferol (cholecalciferol ) 25 mcg (1,000 unit) tablet Take 2,000 Units by mouth daily Active Active Problems Problem Noted Date Diagnosed Date 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 Other male erectile dysfunction 08/07/2017 Stage 3 chronic kidney disease 08/07/2017 Hypertensive chronic kidney disease with stage 1 through stage 4 chronic kidney disease, or unspecified chronic kidney disease 08/07/2017 Type 2 diabetes mellitus wit h other diabetic kidney complication 08/07/2017 Surgical History Surgery Date Site/Laterality Comments PROSTATECTOMY 07/28/2019 - 08/25/2019 WRIST SURGERY Left repair to a scaphoid fracture Medical History Medical History Date Comments Saddle pulmonary embolus (HCC) Elevated troponin CKD (chronic kidney disease) Malignant neoplasm of prostate (HCC) Diabetes mellitus Hypertension GERD (gastroesophageal reflux disease) Thyroid disease Family History Medical History Relation Name Comments Parkinsons Father Lung cancer Mother Relation Name Status Comments Father (Age 72) Mother (Age 65) Social History Tobacco Use Types Packs/Day Years Used Date Smoking Tobacco: Never Smokeless Tobacco: Never Tobacco Cessation:Counseling Given: Not Answered Sex and Gender Information Value Date Recorded Sex Assigned at Not on file Legal Sex Male 9:19 AM BRAINER Gender Identity Not on file Sexual Orientation Not on file Last Filed Vital Signs Vital Sign Reading Time Taken Comments Blood Pressure 108/76 10/13/2024 11:11 AM CDT Pulse 80 10/13/2024 11:11 AM CDT Temperature 37 C (98.6 F) 10/13/2024 11:11 AM CDT Respiratory Rate 18 10/13/2024 11:1 1 AM CDT Oxygen Saturation 98% 10/13/2024 11: 11 AM CDT Inhaled Oxygen Concentration - - Weight 83.8 kg (184 lb 12.8 oz) 025 11:11 AM CDT Height 182.9 cm (6') 08/12/2021 9:29 AM BRAINER Body Mass Index 25.06 08/12/2021 9:29 AM BRAINER Plan of Treatment Health Maintenance Due Date Last Done Comments Albumin Creatinine Ratio, Urine 1958 Colon Cancer Screening-Colonoscopy 1958 Depression Screening 1958 Fall Risk Assessment 1958 Hemoglobin A1C 1958 Hepatitis C Screening 1958 Prostate Cancer Screening-PSA 1958 eGFR 1958 Dilated Eye Exam 1958 Foot Exam 1958 DTaP/Tdap/Td Vaccine (1 - Tdap) 1969 Pneumococcal vaccine 65+ (1 of 2 - PCV) 1977 Zoster Vaccine (1 of 2) 02/06/2008 Lipid Panel 08/12/2022 08/12/2021 Well Visit 65+ 2023 Covid-19 Vaccine (5 - 2024-2 6 season) 2025 06/09/2021, 11/17/2020, 09/13/2020, Additional history exists Influenza Vaccine (#1) 2025 Hepatitis B Screening Completed 11/12/2013 , 06/05/2013, 03/27/2013 Procedures Procedure Name Priority Date/Time Associated Diagnosis Comments POCT LIPID PANEL Routine 08/12/2021 10:2 2 AM BRAINER Lipid screening from Last 3 Months or Most Recently Relevant to Health Maintenance Results * POCT lipid panel (08/12/2021 10:22 AM BRAINER) Cholesterol, POC 183 mg/dL Comment:GLU = 177 HDL, POC 63 mg/dL Triglycerides, POC 159 mg/dL LDL Cholesterol POC 88 mg/dL Chol/HDL Ratio, POC 2.9 Non-HDL Cholesterol, POC 120 mg/dL Cholesterol Total, POC 183 mg/dL Capillary blood 08/12/2021 1 0:22 AM BRAINER Mirna Ashby NP POINT OF CARE TEST ORDERABLE S Final Result from Last 3 Months or Most Recently Relevant to Health Maintenance Insurance [employer] [place] [address] [facility] MEDICARE ADVANTAGE Care Teams Vaccine Manager Relationship Specialty Start Date End Date Jamil Travis MD PCP - General Family Practice 06/28/21
--- OUTSIDE RECORDS SUMMARY | 2025-06-26 11:34 | XMS_ITS | Clinical Summary ---
Author Organization [facility] Address [address] [place] [address] Care Team Providers Care Green Inspector Name Role Phone Jamil Travis MD Primary Care Provider Allergies No known active allergies Medications atorvastatin (LIPITOR) 10 mg tablet 04/06/2021 Active fenofibrate (LOFIBRA) 160 mg Tablet 05/16/2021 Active metFORMIN (GLUCOPHAGE) 1,000 mg tablet 05/04/2021 Act home lisinopril-hydro CHLOROthiazide (ZESTORETIC) 10-12.5 mg tablet 05/20/2021 Active lancets 01/02/2020 Active blood sugar diagnostic (OneTouch Verio test strips) Strip 01/03/2020 Active cholecalciferol, vitamin D3, 1,000 unit Take 2,000 Units by mouth daily. Active cyanocobalamin (VITAMIN B-12) 100 mcg tablet Take 100 mcg by mouth daily. Active levothyroxine sodium (LEVOTHYROXINE ORAL) Take by mouth. Active folic acid (FOLVITE) 1 mg tabletIndication s:Acute saddle pulmonary embolism without acute cor pulmonale (CMS/HCC) TAKE 1 TABLET BY MOUTH TWICE DAILY 180 Tablet 3 09/04/2024 Active Active Problems Problem Noted Date Diagnosed Date Acute saddle pulmonary embolism without acute co r pulmonale 07/13/2021 Encounters Date Type Department Care Team Description 06/18/2025 External Device Data STL ABSTRACTION Provider, Abstract 04/17/2025 External Device Data ST[facility] ABSTRACTION Provider, Abstract from Last 3 Months Family History Medical History Relation Name Comments Diabetes Brother Lung Cancer Mother Relation Name Status Comments Brother Alive Father Mother Sister Alive Social History Tobacco Use Types Packs/Day Years Used Date Smoking Tobacco: Never Smokeless Tobacco: Never Tobacco Cessation:Counseling Given: Not Answered Alcohol Use Standard Drinks/Week Comments Never 0 (1 standard drink = 0.6 oz pur e alcohol) Sex and Gender Information Value Date Recorded Sex Assigned at Not on file Legal Sex Male 8:53 AM FRAUD EXAMINER Gender Identity Not on file Sexual Orientation Not on file Last Filed Vital Signs Vital Sign Reading Time Taken Comments Blood Pressure 127/72 02/11/2025 1:06 PM CDT Pulse 58 02/11/2025 1:06 PM CDT Temperature 36.2 C (97.2 F) 02/11/2025 1:06 PM CDT Respiratory Rate 15 02/11/2025 1:06 PM CDT Oxygen Saturation 97% 02/11/2025 1:06 PM CDT Inhaled Oxygen Concentration - - Weight 83.2 kg (183 lb 6.4 oz) 02/11/2025 1:06 P M CDT Height 182.9 cm (6') 12/22/2021 2:55 PM CDT Body Mass Index 24.87 12/22/2021 2:55 PM CDT Plan of Treatment Upcoming Encounters Date Type Department Care Team (Late st Contact Info) Description 02/12/2026 10:15 AM CDT Office Visit [facility] Oncology and Hematology [facility] [address] [place] [address] [facility] [address] [place] [address] Romeo Guillaume MD [address] [facility] [address] [place] [address] Health Maintenance Due Date Last Done Comments DIABETES ANNUAL FOOT EXAM 02/06/1976 DIABETES ANNUAL RETINAL EXAM 02/06/1976 DIABETES MICROALBUMIN ANNUAL SCREEN 02/06/1976 LDL CHOLESTEROL ANNUAL 02/06/1976 DTAP/TDAP/TD VACCINES (1 - Tdap) 1977 PNEUMOCOCCAL VACCINE 50+ YEARS (1 of 2 - PCV) 02/05/19 77 COLORECTAL SCREENING 2003 Colorectal Cancer Screening 2003 FIT-DNA Q 3 years 2003 FIT/FOBT Q 1 year 2003 Flex Sig/CT Colonography Q 5 years 2003 RSV VACCINE (60+ or ) (1 - Risk 50-74 years 1-dose series) 02/06/2008 ZOSTER VACCINE (1 of 2) 02/06/2008 DIABETES HBA1C Q 6 MONTHS 11/13/2019 05/15/2019 INFLUENZA VACCINE (#1) 2025 Insurance Care Teams Green Inspector Relationship Specialty Start Date End Date Jamil Travis MD [address] [place] [phone] PCP - General Family Practice 07/13/21
--- OUTSIDE RECORDS SUMMARY | 2025-06-26 11:34 | XMS_ITS | Clinical Summary ---
Author Organization [facility] Address [address] [place] [address] Phone Care Team Providers Care Supervisor Compounding And Finishing Name Role Phone Jamil Travis MD Primary Care Provider Allergies Active Allergy Reactions Criticality Noted Date Comments Tadalafil 01/14/2019 Medications allopurinol (ZYLOPRIM) 300 MG tablet 1 tab/cap qday 0 08/07/2017 Active fenofibrate (TRIGLIDE) 160 MG tablet 1 tab/cap qday 0 08/07/2017 Active lisinopril-hydr oCHLOROthiazide (PRINZIDE,ZESTO RETIC) 10-12.5 MG per tablet 1 tab/cap qday 0 08/07/2017 Active atorvastatin (LIPITOR) 10 MG tablet 1 tab/cap qday 0 08/07/2017 Active sildenafil (VIAGRA) 50 MG tablet as directed 0 08/07/2017 Active metoprolol succinate XL (TOPROL-XL) 50 MG 24 hr tablet 1 tab/cap qday 0 08/07/2017 Active traMADol (ULTRAM) 50 MG tablet 08/09/2019 Active glipiZIDE (GLUCOTROL XL) 5 MG 24 hr tablet 12/19/2019 Active ONETOUCH VERIO test strip 01/03/2020 Active Lancets (ONETOUCH DELICA PLUS [id number]) misc 01/02/2020 Act home metFORMIN (GLUCOPHAGE) 1000 MG tablet 05/04/2021 Acti ve Eliquis 5 MG tablet 09/28/2021 Active cholecalciferol (VITAMIN D-3) 25 MCG (1000 UT) tablet Take 2,000 Units by mouth daily Active folic acid (FOLVITE) 1 MG tablet 04/05/2022 Active Active Problems Problem Noted Date Diagnosed Date 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 Gout 08/07/2017 Type 2 diabetes mellitus wit h other diabetic kidney complication 08/07/2017 Other male erectile dysfunction 08/07/2017 Gastro-esophageal reflux disease without esophag itis 08/07/2017 Immunizations Immunization Administration Dates Next Due Sars-cov-2, Unspecified 11/17/2020 Family History Medical History Relation Comments Diabetes mellitus Sibling Hypertensive disorder Sibling Kidney disease Neg Hx Kidney stone Neg Hx Relation Status Comments Sibling Social History Tobacco Use Types Packs/Day Years Used Date Smoking Tobacco: Never Smokeless Tobacco: Never Alcohol Use Standard Drinks/Week Comments No 0 (1 standard drink = 0.6 oz pur e alcohol) Sex and Gender Information Value Date Recorded Sex Assigned at Not on file Legal Sex Male 7:19 AM [facility] Gender Identity Not on file Sexual Orientation Not on file Last Filed Vital Signs Vital Sign Reading Time Taken Comments Blood Pressure 134/76 04/08/2022 10:53 AM CDT Pulse - - Temperature 35.9 C (96.7 F) 04/08/2022 10:53 AM CDT Respiratory Rate 18 04/08/2022 10:53 AM CDT Oxygen Saturation - - Inhaled Oxygen Concentration - - Weight 88.5 kg (195 lb) 04/08/2022 10:53 AM CDT Height 182.9 cm (6') 04/08/2022 10:53 AM CDT Body Mass Index 26.45 04/08/2022 10:53 AM CDT Plan of Treatment Health Maintenance Due Date Last Done Comments Pneumococcal PPSV23/PCV13 65 + Years / Low and Medium Risk (1 of 2 - PCV) 02/06/2008 Influenza Vaccine (#1) 2025 Insurance [employer] Care Teams Supervisor Compounding And Finishing Relationship Specialty Start Date End Date Jamil Travis MD [address] [place] [address] PCP - General Internal Medicine 01/14/19
--- OUTSIDE RECORDS SUMMARY | 2025-06-26 12:17 | XMS_ITS | Encounter Summary ---
Author Organization [facility] Address [address] [place] [address] Care Team Providers Care High Pressure Firer Name Role Phone Robert Bryant MD Primary Care Provider [phone] Encounter Details Date Type Department Care Team (Late st Contact Info) Description 10/26/2017 Lab Requisition [facility] DermPath Lab [address] [place] [id number] Grover Del Rosario MD [address] [place] [address] Social History Tobacco Use Types Packs/Day Years Used Date Smoking Tobacco: Never Assessed Sex and Gender Information Value Date Recorded Sex Assigned at Not on file Legal Sex Male 12:20 PM CDT Gender Identity Not on file Sexual Orientation Not on file documented as of this encounter Plan of Treatment Not on file documented as of this encounter Procedures Procedure Name Priority Date/Time Associated Diagnosis Comments DERMATOPATHOLOGY Routine 10/25/2017 12:0 0 AM CDT documented in this encounter Results * DERMATOPATHOLOGY (10/25/2017 12:00 AM CDT) Case Report Dermatopathology Report Case: [id number] Authorizing Provider: Grover Del Rosario MD Collected: 10/25/2017 12:00 AM Pathologist: Crystal Marquez MD Received: 10/26/2017 12:34 PM Specimen: Skin, left mid volar forearm 8 3:35 PM CDT DERMATOPATHOLOGY LABORATORY Final Diagnosis Specimen A. SKIN, left mid volar forearm: SEBORRHEIC KERATOSIS, MACULAR (L82.1) EPIDERMAL NECROSIS SUGGESTIVE OF EXCORIATION (L98.499) PRESENT AT MARGIN 8 3:35 PM CDT DERMATOPATHOLOGY LABORATORY at 1535 CDT Clinical History R/O SCC, LPLK, BCC. Check margins. 3:35 PM CDT DERMATOPATHOLOGY LABORATORY Gross Description Specimen A: Received is one formalin filled container labeled with the patient's name and designated left mid volar forearm. The specimen consists of a shave biopsy measuring [id number], the margin is inked green. Jar 0. 3:35 PM CDT DERMATOPATHOLOGY LABORATORY Microscopic Description Specimen A. SKIN, left mid volar forearm: Sections show a relatively broad, flat proliferation of small keratinocytes. The surface is gently papillated, and there is increased basilar pigmentation. The epidermis is focally necrotic and covered with a scale-crust. There is fibrin at the base. This lesion is present at the margin of the specimen. 3:35 PM CDT DERMATOPATHOLOGY LABORATORY Disclaimer An external and internal positive and negative controls are appropriate for the histochemical, immunohistochemical and immunofluorescence stain(s) in this case (if any), except where stated explicitly. The performance characteristics of the stain(s) cited in this report were developed and its performance characteristic determined by the Dermatopathology Laboratory at [facility]. These tests need not be, and therefore are not, approved by the [place] Food and Drug Administration. The tests are used for clinical purposes. Billing Codes Specimen Charges Stain Charges 00239 1 3:35 PM CDT DERMATOPATHOLOGY LABORATORY Embedded Images 3:35 PM CDT DERMATOPATHOLOGY LABORATORY Pathology/Cytolog y TISSUE SPECIMEN FROM SKIN / Unknown 10/25/2017 10/26/2017 12:34 PM CDT us Grover Del Rosario MD LAB - PATHOLOGY/CYTOLOGY ORD ERABLES Final Result DERMATOPATHOLOGY LABORATORY [facility] - Department of Dermatology [address] [place] [address], [facility] [phone] documented in this encounter Visit Diagnoses Not on filedocumented in this encounter Care Teams High Pressure Firer Relationship Specialty Start Date End Date Robert Bryant MD [address] [place] [phone] PCP - General 10/26/17 documented as of this encounter
--- OUTSIDE RECORDS SUMMARY | 2025-06-26 12:17 | XMS_ITS | Clinical Summary ---
Author Organization [facility] Address [address] [place] [address] Phone Care Team Providers Care Telecom Coordinator Name Role Phone Jamil Travis MD Primary [...] strip 01/03/2020 Active Lancets (ONETOUCH DELICA PLUS [id number]) misc 01/02/2020 Act home metFORMIN (GLUCOPHAGE) 1000 [...] on file Legal Sex Male 7:19 AM [facility] Gender Identity Not on file Sexual [...] Vaccine (#1) 2025 Insurance [employer] Care Teams Telecom Coordinator Relationship Specialty Start Date End Date Jamil Travis MD [address] [place] [address] PCP - General Internal Medicine 01/14/19
--- OUTSIDE RECORDS SUMMARY | 2025-06-26 12:17 | XMS_ITS | Clinical Summary ---
Author Organization [facility] [address] Address [address] [place] [address] Care Team Providers Care [facility] Office Supervisor Name Role Phone Jamil Travis MD Primary [...] on file Legal Sex Male 9:19 AM LAMP CLEANER Gender Identity Not on file Sexual Orientation [...] Height 182.9 cm (6') 08/12/2021 9:29 AM LAMP CLEANER Body Mass Index 25.06 08/12/2021 9:29 AM LAMP CLEANER Plan of Treatment Health Maintenance Due Date [...] LIPID PANEL Routine 08/12/2021 10:2 2 AM LAMP CLEANER Lipid screening from Last 3 Months or Most Recently Relevant to Health Maintenance Results * POCT lipid panel (08/12/2021 10:22 AM LAMP CLEANER) Cholesterol, POC 183 mg/dL Comment:GLU = 177 HDL, POC 63 mg/dL Triglycerides, POC 159 mg/dL LDL Cholesterol POC 88 mg/dL Chol/HDL Ratio, POC 2.9 Non-HDL Cholesterol, POC 120 mg/dL Cholesterol Total, POC 183 mg/dL Capillary blood 08/12/2021 1 0:22 AM LAMP CLEANER Mirna Ashby NP POINT OF CARE TEST ORDERABLE S Final Result from Last 3 Months or Most Recently Relevant to Health Maintenance [place] [employer] [place] [address] [facility] MEDICARE ADVANTAGE [facility] MEDICARE Address: [address] [address] Care Teams [facility] Office Supervisor Relationship Specialty Start Date End Date Jamil Travis MD PCP - General Family Practice 06/28/21
--- OUTSIDE RECORDS SUMMARY | 2025-06-26 12:17 | XMS_ITS | Clinical Summary ---
Author Organization [facility] Address [address] [place] [address] Care Team Providers Care Handle Finisher Name Role Phone Robert Bryant MD Primary Care Provider [phone] Source Comments [facility],non-owned Affiliates and Associated Physician Practices is amultiple site organization consisting of ambulatory clinics and hospital sitesin [place], [place], [place] and [place]. This disclosure is being madepursuant to the Care Everywhere program and may not contain all information available regarding this patient. Last updated 18.[facility] Social History Tobacco Use Types Packs/Day Years Used Date Smoking Tobacco: Never Assessed Sex and Gender Information Value Date Recorded Sex Assigned at Not on file Legal Sex Male 12:20 PM CDT Gender Identity Not on file Sexual Orientation Not on file Plan of Treatment Health Maintenance Due Date Last Done Comments COLOGUARD (AGES 45-75) - COL ON CA SCREENING 1958 COLON MONITORING 1958 COLONOSCOPY - COLON CA SCREENING 1958 CT COLONOGRAPHY - COLON CA SCREENING 1958 Colorectal Cancer Screening 1958 FIT - COLON CA SCREENING 1958 FLEX SIG - COLON CA SCREENING 1958 LIPID TESTING 1958 HEPATITIS C SCREENING 02/01/1976 DTAP/TDAP/TD VACCINES (1 - Tdap) 1977 PNEUMOCOCCAL VACCINE 50+ (1 of 1 - PCV) 02/06/2008 ZOSTER VACCINE (1 of 2) 02/06/2008 DEPRESSION SCREENING 06/27/2024 COVID-19 VACCINE (1 - 2024-2 6 season) 2025 INFLUENZA VACCINE (#1) 2025 Respiratory Syncytial Virus (RSV) Vaccine Pt: or over 60 yrs (1 - 1-dose 75+ series) 2033 HEPATITIS B VACCINE Aged Out No longe r eligible based on patient's age to complete this topic HIB VACCINE Aged Out No longer eligi ble based on patient's age to complete this topic HPV VACCINE Aged Out No longer eligi ble based on patient's age to complete this topic MENINGOCOCCAL (Group B) VACC INE SHARED DECISION-MAKING Aged Out No longer eligibl e based on patient's age to complete this topic MENINGOCOCCAL GROUPS A/C/Y/W VACCINE Aged Out No longer eligible b ased on patient's age to complete this topic Insurance [facility] Care Teams Handle Finisher Relationship Specialty Start Date End Date Robert Bryant MD [address] [place] [address] PCP - General 10/26/17
--- OUTSIDE RECORDS SUMMARY | 2025-06-26 12:17 | XMS_ITS | Clinical Summary ---
Author Organization [facility] Address [address] [place] [address] Care Team Providers Care National Investigative Producer Name Role Phone Jamil Travis MD Primary [...] on file Legal Sex Male 8:53 AM CONVENTION PLANNER Gender Identity Not on file Sexual Orientation [...] Description 02/12/2026 10:15 AM CDT Office Visit [facility] Oncology and Hematology [facility] [address] [place] [address] [facility] [address] [place] [address] Romeo Guillaume MD [address] [facility] [address] [place] [address] Health Maintenance Due Date Last [...] INFLUENZA VACCINE (#1) 2025 Insurance Care Teams National Investigative Producer Relationship Specialty Start Date End Date Jamil Travis MD [address] [place] [phone] PCP - General Family Practice 07/13/21
--- NOTE | 2025-06-26 12:46 | ED_ITS ---
HPI - Extremity Problem General Chief complaint: Extremity Problem,Nontraumatic Stated complaint: R calf swelling Time Seen by Provider: 06/26/25 12:07 Source: patient Mode of arrival: ambulatory Limitations: no limitations History of Present Illness HPI Narrative: Patient presents with right calf swelling and redness since this morning. 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 He was admitted to this hospital at that time and on heparin for approximately 1 week after which he was discharged on Eliquis which he was on for approximately 2-3 months. He reports that his entertainment centre manager Dr. Guillaume then had him discontinue this medication. He still sees Aundrea approximately every 6 months. He is on aspirin daily. No injury/trauma. No recent travel. History of CKD as well as prediabetes the latter for which he is on metformin. He denies any fevers or chills. Confirms he has a PCP Ana whom he sees every 6 months as well. No paresthesias. Related Data Home Medications ?Medication ?Instructions ?Recorded ?Confirmed ?Last Taken ?Type cholecalciferol (vitamin D3) 50 2,000 unit PO DAILY 05/01/25 07/30/19 History mcg (2,000 unit) tablet (Vitamin 0800 D3) aspirin 81 mg tablet,delayed 81 mg PO DAILY 07/12/22 1 07/01/24 Unknown History release famotidine 20 mg tablet (Pepcid) 20 mg PO DAILY PRN 05/01/25 Unknown History folic acid 1 mg tablet 1 mg PO BID 07/12/22 5 Unknown History mecobalamin (vitamin B12) 1,000 1,000 mcg sublingual D AILY 07/12/22 05/01/25 Unknown History mcg disintegrating tablet,sublingual Allergies Allergy/AdvReac Type Severity Reaction Status Date / Time No Known Allergies Allergy Unknown Verified 05/01/25 08:49 [facility] Past Medical History Medical History Prediabetes History of pulmonary embolism (~06/2021) Elevated homocysteine Stage 3b chronic kidney disease Vitamin D deficiency Dyslipidemia Essential (primary) hypertension GERD without esophagitis Idiopathic chronic gout, unspecified site, without tophus (tophi) Subclinical hypothyroidism Type 2 diabetes mellitus without complication, without long-term current use of insulin Adenocarcinoma of prostate Osteoarthritis Prostate CA Surgical History Surgical History History of surgery on left wrist (~2001) To repair a scaphoid fracture History of prostatectomy (~07/2019) Dr. Vizcaino Family History Family History Mother Family history of lung cancer Sibling DVT of leg (deep venous thrombosis) Other Diabetes mellitus Hypertension Social History Social History Smoking status: Never smoker Second hand tobacco smoke exposure: No Alcohol intake: never Substance use: never Substance use type: does not use Lack of Transportation: No Lack of Food: Never True Current Housing: I Have Housing Concerned About Future Housing: No Difficulty Paying Gas/Electric Bills: No Difficulty Paying for Meds: No Currently Unemployed: No Education: Trade/Vocational Certificate Difficulty w/ Childcare or Family Care: No Living arrangements: alone Gender identity (if verbalized by the patient): Male Sexual Orientation (if Verbalized by the Patient): Straight or Heterosexual Spiritual care concerns: No Exam 2 Narrative: GENERAL: Well-appearing, well-nourished, and in no acute distress. HEAD: Normocephalic, atraumatic. EYES: Non injected, non icteric ENT: Nares clear, no rhinorrhea or epistaxis. Gross auditory acuity intact. NECK: Supple. No meningismus. CHEST: Speaking in full sentences. No respiratory distress. HEART: Regular rate and rhythm. . ABDOMEN: Soft, nondistended. EXTREMITIES: Normal range of motion. Right calf > left calf. Strong palpable DP pulse on the right. SKIN: Warm, dry. No phlagmasia cerulean dolens /alba dolens NEURO: No focal deficits. Alert and oriented. Answering questions. Following commands. Normal speech without aphasia or dysarthria. Sensation intact throughout bilateral lower extremities. PSYCH: Normal mood and affect. Course Vital Signs Vital signs: Vital Signs Temperature 97.5 F L 06/26/25 11:26 Pulse Rate 82 06/26/25 11:26 Respiratory Rate 20 06/26/25 11:26 Blood Pressure 132/82 06/26/25 11:26 Pulse Oximetry 100 06/26/25 11:26 Temperature 97.5 F L 06/26/25 11:26 Pulse Rate 88 06/26/25 14:24 Respiratory Rate 16 06/26/25 14:24 Blood Pressure 121/88 06/26/25 14:24 Pulse Oximetry 100 06/26/25 14:24 [facility] Narrative Medical decision making narrative: 65-year-old male presents with right calf swelling that he noticed this morning. In the emergency department they are afebrile with vital signs within normal limits. US as below. Not hypoxic or tachycardic. Patient had previously been on Eliquis for history of pulmonary embolism although this was discontinued after approximately 2-3 months of use. Had been on aspirin instead since. Denies any issues with cost when previously on Elliquis; it was covered by insurance. Creatinine has ranged 1.7 to 2.4 approximately per review of EMR thus appears stable today. CrCl >30. Written Rx provided for medication given the holiday/pharmacies might be closed. First dose given in the ED. otherwise stable for discharge and advised follow-up with primary care physician and entertainment centre manager. Differential Diagnosis Differential Diagnosis: DVT; also considered thrombophlebitis, arterial ischemia, cellulitis, herpes zoster; trauma, lymphedema Lab Data [facility] Lab Attestation statement: I personally reviewed the patient's lab results. Lab results narrative: CBC with mild abnormalities on differential but otherwise without anemia thrombocytopenia, leukocytosis. Normal coags 06/26/25 12:55 06/26/25 12:55 Labs: Lab Results 06/26/25 Range/Units 12:55 WBC 8.6 (4.5-10.0) K/mm3 RBC 4.73 (4.6-6.20) M/mm3 Hgb 14.9 (14.0-18.0) g/dL Hct 44.7 (42.0-52.0) % MCV 94.5 (80-100) fl MCH 31.5 (26-34) pg MCHC 33.3 (32-36) g/dl RDW 12.4 (11.5-14.5) % Plt Count 252 (150-375) k/mm3 MPV 9.7 (7.4-10.4) fl Immature Gran % (Auto) 0.3 (0-0.5) % Neut % (Auto) 77.2 H (45.5-73.1) % Lymph % (Auto) 13.8 L (18.3-44.2) % Ellis % (Auto) 7.2 (2.6-8.5) % Eos % (Auto) 0.8 (0-4.4) % Baso % (Auto) 0.7 (0.2-1.2) % Lymph # (Auto) 1.19 (0.9-3.2) K/mm3 Ellis # (Auto) 0.6 (0.1-0.6) K/mm3 Eos # (Auto) 0.1 (0-0.3) K/mm3 Baso # (Auto) 0.1 (0.0-0.1) K/mm3 Abs Immat Gran (auto) 0.03 (0.00-0.031) K/mm3 Absolute Neuts (auto) 6.7 (1.3-6.7) K/mm3 Absolute Nucleated RBC 0.000 (0.0-0.012) K/mm3 Nucleated RBC % 0.0 (0.0-0.2) % PT 13.6 (11.1-14.7) Seconds INR 1.0 APTT 28.5 (22.3-36.8) Seconds Sodium 138 (137-145) mmol/L Potassium 4.2 (3.4-5.0) mmol/L Chloride 101 (98-107) mmol/L Carbon Dioxide 25 (22-30) mmol/L Anion Gap 12 (4-12) mmol/L BUN 32 H (9-20) mg/dL Creatinine 2.09 H (0.7-1.3) mg/dL Estim Creat Clear Calc 33 ml/min Estimated GFR 32 L (59 - ) Glucose 178 H (65-110) mg/dL Calcium 10.3 H (8.4-10.2) mg/dL Imaging Data Radiologist's impression: FINDINGS/IMPRESSION: 1. Extensive occlusive thrombus common femoral vein through calf veins. Discharge Plan Discharge Clinical Impression: Acute deep vein thrombosis (DVT) of right lower extremity Patient Disposition: Home Condition: Stable Instructions: Antibiotic Form, Deep Vein Thrombosis (DC), Deep Vein Thrombosis Prevention (ED) Additional Instructions: Take the medication as prescribed. You received your 1st dose in the emergency department. Follow-up with your primary care physician and entertainment centre manager. Return to the emergency department with any new or worsening symptoms such as intractable pain, numbness/tingling, shortness of breath, etc.. Acetaminophen/Tylenol maximum 4000 mg per day is safe to take for pain but you are to avoid taking NSAIDs such as ibuprofen/Motrin/Advil/Aleve/etc. While you are on anticoagulation. Patient Language: Faroese Prescriptions: New Anaid DVT-PE Treat 30D Start 5 mg (74 tabs) tablets,dose pack See Rx Instructions .ROUTE .COMPLEX Qty: 74 0RF Rx Instructions: orally per package directions acetaminophen 500 mg capsule 1,000 mg PO Q6H PRN (Reason: pain) Qty: 30 0RF No Action aspirin 81 mg tablet,delayed release (DR/EC) 81 mg PO DAILY folic acid 1 mg tablet 1 mg PO BID mecobalamin (vitamin B12) 1,000 mcg tablet,disintegrating 1,000 mcg sublingual DAILY Rx Instructions: place tablet under tongue and allow to dissolve for at least30 secs before swallowing famotidine [Pepcid] 20 mg tablet 20 mg PO DAILY PRN cholecalciferol (vitamin D3) [Vitamin D3] 2,000 unit Tablet 2,000 unit PO DAILY sildenafil 50 mg tablet 50 mg PO DAILY PRN (Reason: sexual activity) Qty: 30 0RF Rx Instructions: administer 30 minutes to 4 hours before activity (DME) OneTouch Verio test strips Strip See Rx Instructions .Route Qty: 100 3RF Rx Instructions: Check blood sugar once daily lancets 33 gauge misc See Rx Instructions .ROUTE .COMPLEX Qty: 100 3RF Dose Instruction: USE TO TEST BLOOD SUGAR EVERY MORNING AND NEEDED Rx Instructions: USE TO TEST BLOOD SUGAR EVERY MORNING metformin 500 mg tablet 500 mg PO BID Qty: 180 3RF lisinopril-hydrochlorothiazide 10-12.5 mg tablet 1 tablet PO DAILY Qty: 90 1RF atorvastatin 10 mg tablet 10 mg PO QHS Qty: 90 1RF Jardiance 10 mg tablet 10 mg PO QAM Qty: 90 1RF Rx Instructions: DUE FOR APPOINTMENT IN APRIL fenofibrate 160 mg tablet 160 mg PO DAILY Qty: 90 1RF Follow-up/Referrals: Romeo Guillaume MD [Physician, Hematology] Ricarda Travis MD [Primary Care Provider, Family Practice] Stand Alone Forms: Work/School Release IP Time of Disposition: 13:50
[2025-06-26 13:01] LABS: Hematocrit 44.7 % (42.0-52.0); Hemoglobin 14.9 g/dL (14.0-18.0); Immature Granulocyte Percent A 0.3 % (0-0.5); Lymphocytes Absolute Auto 1.19 K/mm3 (0.9-3.2); Mean Corpuscular HGB Conc 33.3 g/dl (32-36); Mean Corpuscular Hemoglobin 31.5 pg (26-34); Mean Corpuscular Volume 94.5 fl (80-100); Nucleated Red Blood Cells Absolute Auto 0.000 K/mm3 (0.0-0.012); Nucleated Red Blood Cells Perc 0.0 % (0.0-0.2); Platelet Count Result 252 k/mm3 (150-375); Red Blood Count 4.73 M/mm3 (4.6-6.20); White Blood Count 8.6 K/mm3 (4.5-10.0)
[2025-06-26 13:12] LABS: INR 1.0; Prothrombin Time 13.6 Seconds (11.1-14.7)
[2025-06-26 13:13] LABS: Partial Thromboplastin Time 28.5 Seconds (22.3-36.8)
[2025-06-26 13:31] LABS: Anion Gap 12 mmol/L (4-12); Blood Urea Nitrogen 32 mg/dL (9-20); Calcium 10.3 mg/dL (8.4-10.2); Carbon Dioxide 25 mmol/L (22-30); Chloride 101 mmol/L (98-107); Estimated CRCL calculation 33 ml/min; Estimated Glomerular Filt Rate 32; Glucose 178 mg/dL (65-110); Potassium 4.2 mmol/L (3.4-5.0); Sodium 138 mmol/L (137-145)
[2025-06-26] MEDS: HYDROcodone/acetaminophen (*CRX) 5-325 MG TABLET 1 TAB PO (14:07)
[2025-06-26] MEDS: APIXABAN 5 MG TABLET 10 MG PO (14:20)
[2025-06-26 14:24] VITALS: BP 121/88; PULSE 88; RESP 16; O2SAT 100
== END 2025-06-26 14:29 | disposition home or self-care (01) ==
PROVIDERS: Emergency Provider Student in an Organized Health Care Education/Training Program; PCP Family Medicine
DX: I82.411 Acute embolism and thrombosis of right femoral vein (principal); I82.4Z1 Acute embolism and thrombosis of unspecified deep veins of right distal lower extremity; Z86.711 Personal history of pulmonary embolism; Z79.01 Long term (current) use of anticoagulants; N18.32 Chronic kidney disease, stage 3b; E55.9 Vitamin D deficiency, unspecified; I12.9 Hypertensive chronic kidney disease with stage 1 through stage 4 chronic kidney disease, or unspecified chronic kidney disease; E78.5 Hyperlipidemia, unspecified; E11.9 Type 2 diabetes mellitus without complications; E03.8 Other specified hypothyroidism; Z85.9 Personal history of malignant neoplasm, unspecified; M1A.9XX0 Chronic gout, unspecified, without tophus (tophi)
CPT/HCPCS: 36415; 80048; 85025; 85610; 85730; 93971; 99284; A9270